=== PATIENT | female | born 1990 | race Caucasian/White ===

== ENCOUNTER 2016-03-18 10:57 | Emergency (ER) | payer OTHER ==
[~2016-03-18 10:57] MED LIST: ACET50TA PO; CEPH25SS PO; LOVE0.4I2 SC; LOVE1INJ2 SC; MOTR200T44 PO; PRENTAB74 PO
--- NOTE | 2016-03-18 13:54 | EDDOCDS ---
Physician Documentation [facility] Name: Gilma Uribe Age: 25 yrs Sex: Female : 1990 Arrival Date: 03/18/2016 Time: 10:57 Bed TR8 Private MD: Unknown Pcp Disposition: 03/18/16 13:43 Discharged to Home/Self Care. Impression: Paresthesia of skin - RIGHT hand, suspect CTS. - Condition is Stable. - Discharge Instructions: Paresthesia, [id number]. - Medication Reconciliation, Local Pharmacy Hours, Work Release Form - 1 day form. - Follow up: [facility]; When: Call to arrange an appointment; Reason: Further diagnostic work-up, Recheck today's complaints, Continuance of care. - Problem is new. - Symptoms are unchanged. Historical: - Allergies: no known allergies; - Home Meds: 1. none - PMHx: none; - PSHx: Tubal ligation; Bunionectomy; - Social history: Smoking status: Patient uses tobacco products, light tobacco smoker. No barriers to communication noted, The patient speaks fluent Indian, Speaks appropriately for age. - Family history: Not pertinent. - : The pt / caregiver states he / she is not on anticoagulants. Home medication list is obtained from the patient. - Exposure Risk Screening:: None identified. 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 9 in. (175.26 cm); Pain 0/10; 13:46 BP 110 / 56; Pulse 68; Resp 16; Temp 97.2; Pulse Ox 100% ; Pain 0/10; cmb 11:00 Body Mass Index 16.54 (50.80 kg, 175.26 cm) bnb Signatures: Erwin Philippe RN RN mlb1 Simon Cabrera PA PA btw Conner, Teresa RN RN ttb MTDD
--- NOTE | 2016-03-18 13:54 | EDDOCDS ---
Nurse's Notes [facility] Name: Gilma Uribe Age: 25 yrs Sex: Female : 1990 Arrival Date: 03/18/2016 Time: 10:57 Bed TR8 Private MD: Unknown Pcp Diagnosis: Paresthesia of skin-RIGHT hand, suspect CTS Presentation: 03/18 11:05 Presenting complaint: Patient states: Awoke with right hand numbness, states "now it's mlb1 tingling". Adult Sepsis Screening: The patient does not have new or worsening altered mentation. Patient's respiratory rate is less than 22. Systolic blood pressure is greater than 100. Patient has a qSOFA score of 0- Negative Sepsis Screen. Suicide/Homicide risk assessment- the patient denies having any suicidal and/or homicidal ideations and does not present with any other emotional, behavioral or mental health complaints. Status: Patient is not a product manager financial services or dependent. Transition of care: patient was not received from another setting of care. 11:05 Acuity: CHARLA Level 4 mlb1 11:05 Method Of Arrival: Walkin/Carried/Asstd mlb1 Triage Assessment: 11:07 General: Appears in no apparent distress, Behavior is appropriate for age, cooperative. mlb1 Pain: Denies pain. Pt Declines HIV testing. Neurological: Reports tingling in right hand. Musculoskeletal: Circulation, motion, and sensation intact Capillary refill < 3 seconds is brisk in right fingers. 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 none - PMHx: none; - PSHx: Tubal ligation; Bunionectomy; - Social history: Smoking status: Patient uses tobacco products, light tobacco smoker. No barriers to communication noted, The patient speaks fluent Bengali, Speaks appropriately for age. - Family history: Not pertinent. - : The pt / caregiver states he / she is not on anticoagulants. Home medication list is obtained from the patient. - Exposure Risk Screening:: None identified. Screenin:51 Screening information is obtained from the patient. Fall risk: No risks identified. ttb Assistance ADL's: requires no assistance with activities of daily living. Abuse/DV Screen: The patient / caregiver reports he/she is: not in a situation that causes fear, pain or injury. Nutritional screening: No deficits noted. Advance Directives: Currently, there is no health care proxy. home support is adequate. Assessment: 13:51 General: Appears in no apparent distress, well nourished, well groomed, Behavior is ttb appropriate for age, cooperative, pleasant. Pain: Location: right hand. Neurological: Level of Consciousness is awake, alert. Cardiovascular: Chest pain is denied. Respiratory: No deficits noted. Airway is patent Denies cough, shortness of breath. GI: Denies nausea, vomiting, pain. Derm: No deficits noted. Musculoskeletal: Circulation, motion, and sensation intact Range of motion intact in all extremities. Injury Description: No known injury. Vital Signs: 11:00 BP 123 / 66 RA Sitting (auto/reg); Pulse 86; Resp 20; Temp 96.7; Pulse Ox 100% on R/A; bnb Weight 50.8 kg; Height 5 ft. 9 in. (175.26 cm); Pain 0/10; 13:46 BP 110 / 56; Pulse 68; Resp 16; Temp 97.2; Pulse Ox 100% ; Pain 0/10; cmb 11:00 Body Mass Index 16.54 (50.80 kg, 175.26 cm) bnb ED Course: 10:59 Patient visited by Belinda Yee PCA. bnb 10:59 Patient moved to Waiting bnb 11:00 Unknown Pcp is Private Physician. bnb 11:01 Patient visited by Belinda Yee PCA. bnb 11:02 Patient moved to Pre RCE bnb 11:04 Patient visited by Erwin Philippe, RN. mlb1 11:06 Triage Initiated mlb1 11:07 Patient visited by Erwin Philippe, RN. mlb1 12:40 Patient moved to Triage 3 cmb 13:25 Simon Cabrera PA is PHCP. btw 13:25 Bethany Holloway MD is Attending Physician. btw 13:33 Patient visited by Simon Cabrera PA. btw 13:42 [facility] is Referral Physician. btw 13:46 Patient visited by Patsy Chen. cmb 13:51 Patient moved to TR8 [facility] 13:51 The patient / caregiver is instructed regarding the plan of care and ED course. Patient ttb has correct armband on for positive identification. 13:51 No IV's were initiated during this patient's visit. No procedures done that require ttb assistance. Order Results: There are currently no results for this order. Outcome: 13:43 Discharge ordered by Provider. btw 13:51 Discharge Assessment: Patient awake, alert and oriented x 3. No cognitive and/or ttb functional deficits noted. Patient verbalized understanding of disposition instructions. Patient awake and alert. patient administered narcotics - no. The following High Risk Discharge criteria are identified: None. Discharged to home ambulatory. Condition: good Condition: stable Condition: improved. Discharge instructions given to patient, Instructed on discharge instructions, follow up and referral plans. medication usage, ice Demonstrated understanding of instructions, medications, Pt was receptive of discharge instructions/ teaching. Work note provided to patient. No special radiology studies were completed. Property :Personal belongings accompany Pt. 13:53 Patient left the ED. ttb Signatures: Suzanne Farmer RN Erwin Martinez mcp RN RN mlb1 Simon Cabrera PA PA btPatsy Parker Teresa, RN RN ttb Belinda Yee, SUSAN WAREHOUSE SELECTOR bncarmen JOSELYN
--- NOTE | 2016-03-20 14:54 | EDDOCDS ---
Nurse's Notes [facility] Name: Gilma Uribe Age: 25 yrs Sex: Female : 1990 Arrival Date: 03/18/2016 Time: 10:57 Bed TR8 Private MD: Unknown Pcp Diagnosis: Paresthesia of skin-RIGHT hand, suspect CTS Presentation: 03/18 11:05 Presenting complaint: Patient states: Awoke with right hand numbness, states "now it's mlb1 tingling". Adult Sepsis Screening: The patient does not have new or worsening altered mentation. Patient's respiratory rate is less than 22. Systolic blood pressure is greater than 100. Patient has a qSOFA score of 0- Negative Sepsis Screen. Suicide/Homicide risk assessment- the patient denies having any suicidal and/or homicidal ideations and does not present with any other emotional, behavioral or mental health complaints. Status: Patient is not a surgical services assistant or dependent. Transition of care: patient was not received from another setting of care. 11:05 Acuity: CHARLA Level 4 mlb1 11:05 Method Of Arrival: Walkin/Carried/Asstd mlb1 Triage Assessment: 11:07 General: Appears in no apparent distress, Behavior is appropriate for age, cooperative. mlb1 Pain: Denies pain. Pt Declines HIV testing. Neurological: Reports tingling in right hand. Musculoskeletal: Circulation, motion, and sensation intact Capillary refill < 3 seconds is brisk in right fingers. 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 none - PMHx: none; - PSHx: Tubal ligation; Bunionectomy; - Social history: Smoking status: Patient uses tobacco products, light tobacco smoker. No barriers to communication noted, The patient speaks fluent Maltese, Speaks appropriately for age. - Family history: Not pertinent. - : The pt / caregiver states he / she is not on anticoagulants. Home medication list is obtained from the patient. - Exposure Risk Screening:: None identified. Screenin:51 Screening information is obtained from the patient. Fall risk: No risks identified. ttb Assistance ADL's: requires no assistance with activities of daily living. Abuse/DV Screen: The patient / caregiver reports he/she is: not in a situation that causes fear, pain or injury. Nutritional screening: No deficits noted. Advance Directives: Currently, there is no health care proxy. home support is adequate. Assessment: 13:51 General: Appears in no apparent distress, well nourished, well groomed, Behavior is ttb appropriate for age, cooperative, pleasant. Pain: Location: right hand. Neurological: Level of Consciousness is awake, alert. Cardiovascular: Chest pain is denied. Respiratory: No deficits noted. Airway is patent Denies cough, shortness of breath. GI: Denies nausea, vomiting, pain. Derm: No deficits noted. Musculoskeletal: Circulation, motion, and sensation intact Range of motion intact in all extremities. Injury Description: No known injury. Vital Signs: 11:00 BP 123 / 66 RA Sitting (auto/reg); Pulse 86; Resp 20; Temp 96.7; Pulse Ox 100% on R/A; bnb Weight 50.8 kg; Height 5 ft. 9 in. (175.26 cm); Pain 0/10; 13:46 BP 110 / 56; Pulse 68; Resp 16; Temp 97.2; Pulse Ox 100% ; Pain 0/10; cmb 11:00 Body Mass Index 16.54 (50.80 kg, 175.26 cm) bnb ED Course: 10:59 Patient visited by Belinda Yee PCA. bnb 10:59 Patient moved to Waiting bnb 11:00 Unknown Pcp is Private Physician. bnb 11:01 Patient visited by Belinda Yee PCA. bnb 11:02 Patient moved to Pre RCE bnb 11:04 Patient visited by Erwin Philippe, RN. mlb1 11:06 Triage Initiated mlb1 11:07 Patient visited by Erwin Philippe, RN. mlb1 12:40 Patient moved to Triage 3 cmb 13:25 Simon Cabrera PA is PHCP. btw 13:25 Bethany Holloway MD is Attending Physician. btw 13:33 Patient visited by Simon Cabrera PA. btw 13:42 [facility] is Referral Physician. btw 13:46 Patient visited by Patsy Chen. cmb 13:51 Patient moved to TR8 [facility] 13:51 The patient / caregiver is instructed regarding the plan of care and ED course. Patient ttb has correct armband on for positive identification. 13:51 No IV's were initiated during this patient's visit. No procedures done that require ttb assistance. 14:05 Patient name changed from Gilma\\S\\Beth\\S\\Tamblin\\S\\ to Gilma\\S\\N\\S\\Tamblin. EDMS 14:06 [facility] Payment Agreement was scanned into [employer] and attached to record. 15:40 T-Sheet-- Draft Copy was scanned into [employer] and attached to record. gb Order Results: There are currently no results for this order. Outcome: 13:43 Discharge ordered by Provider. btw 13:51 Discharge Assessment: Patient awake, alert and oriented x 3. No cognitive and/or ttb functional deficits noted. Patient verbalized understanding of disposition instructions. Patient awake and alert. patient administered narcotics - no. The following High Risk Discharge criteria are identified: None. Discharged to home ambulatory. Condition: good Condition: stable Condition: improved. Discharge instructions given to patient, Instructed on discharge instructions, follow up and referral plans. medication usage, ice Demonstrated understanding of instructions, medications, Pt was receptive of discharge instructions/ teaching. Work note provided to patient. No special radiology studies were completed. Property :Personal belongings accompany Pt. 13:53 Patient left the ED. ttb Signatures: Dispatcher [facility] EDTN Suzanne Farmer, RN RN Jayne Flowers, Reg Reg gb Deborah Elder, Reg Reg lg Erwin Philippe RN RN mlb1 Simon Cabrera PA PA btw Patsy Chen cmNaya Clay RN RN ttb Belinda Yee, SUSAN LEAN MANUFACTURING COORDINATOR bnb Chart Complete MTDD
--- NOTE | 2016-03-20 14:54 | EDDOCDS ---
Physician Documentation [facility] Name: Gilma Uribe Age: 25 yrs Sex: Female : 1990 Arrival Date: 03/18/2016 Time: 10:57 Bed TR8 Private MD: Unknown Pcp Disposition: 03/18/16 13:43 Discharged to Home/Self Care. Impression: Paresthesia of skin - RIGHT hand, suspect CTS. - Condition is Stable. - Discharge Instructions: Paresthesia, [id number]. - Medication Reconciliation, Local Pharmacy Hours, Work Release Form - 1 day form. - Follow up: [facility]; When: Call to arrange an appointment; Reason: Further diagnostic work-up, Recheck today's complaints, Continuance of care. - Problem is new. - Symptoms are unchanged. Historical: - Allergies: no known allergies; - Home Meds: 1. none - PMHx: none; - PSHx: Tubal ligation; Bunionectomy; - Social history: Smoking status: Patient uses tobacco products, light tobacco smoker. No barriers to communication noted, The patient speaks fluent Irish, Speaks appropriately for age. - Family history: Not pertinent. - : The pt / caregiver states he / she is not on anticoagulants. Home medication list is obtained from the patient. - Exposure Risk Screening:: None identified. 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 9 in. (175.26 cm); Pain 0/10; 13:46 BP 110 / 56; Pulse 68; Resp 16; Temp 97.2; Pulse Ox 100% ; Pain 0/10; cmb 11:00 Body Mass Index 16.54 (50.80 kg, 175.26 cm) bnb MDM: 14:06 [facility] [place] Agreement was scanned into [employer] and attached to record. lg 15:40 T-Sheet-- Draft Copy was scanned into [employer] and attached to record. gb Signatures: Jayne Hoffman, Reg Reg gb Deborah Elder, Reg Reg lg Erwin Philippe RN RN mlb1 Simon Cabrera PA PA ryanw Naya Mejia RN RN ttb The chart was reviewed and I authenticate all verbal orders and agree with the evaluation and treatment provided.Attachments: 14:06 [facility] Payment Agreement lg 15:40 T-Sheet-- Draft Copy gb Chart Complete MTDD
--- NOTE | 2016-03-20 14:54 | EDDOCDS ---
Physician Documentation [facility] Name: Gilma Uribe Age: 25 yrs Sex: Female : 1990 Arrival Date: 03/18/2016 Time: 10:57 Bed TR8 Private MD: Unknown Pcp Disposition: 03/18/16 13:43 Discharged to Home/Self Care. Impression: Paresthesia of skin - RIGHT hand, suspect CTS. - Condition is Stable. - Discharge Instructions: Paresthesia, [id number]. - Medication Reconciliation, Local Pharmacy Hours, Work Release Form - 1 day form. - Follow up: [facility]; When: Call to arrange an appointment; Reason: Further diagnostic work-up, Recheck today's complaints, Continuance of care. - Problem is new. - Symptoms are unchanged. Historical: - Allergies: no known allergies; - Home Meds: 1. none - PMHx: none; - PSHx: Tubal ligation; Bunionectomy; - Social history: Smoking status: Patient uses tobacco products, light tobacco smoker. No barriers to communication noted, The patient speaks fluent Paraguayan, Speaks appropriately for age. - Family history: Not pertinent. - : The pt / caregiver states he / she is not on anticoagulants. Home medication list is obtained from the patient. - Exposure Risk Screening:: None identified. 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 9 in. (175.26 cm); Pain 0/10; 13:46 BP 110 / 56; Pulse 68; Resp 16; Temp 97.2; Pulse Ox 100% ; Pain 0/10; cmb 11:00 Body Mass Index 16.54 (50.80 kg, 175.26 cm) bnb MDM: 14:06 [facility] [place] Payment Agreement was scanned into [employer] and attached to record. lg 15:40 T-Sheet-- Draft Copy was scanned into [employer] and attached to record. gb Signatures: Jayne Hoffman, Reg Reg gb Deborah Elder, Reg Reg lg Erwin Philippe RN RN mlb1 Simon Cabrera PA PA yranw Naya Mejia RN RN ttb The chart was reviewed and I authenticate all verbal orders and agree with the evaluation and treatment provided.Attachments: 14:06 [facility] Payment Agreement lg 15:40 T-Sheet-- Draft Copy gb Chart Complete MTDD
== END 2016-03-18 13:53 | disposition home or self-care (01) ==
LOC: M ED 10:57
DX: R20.2 Paresthesia of skin (principal); F17.210 Nicotine dependence, cigarettes, uncomplicated

== ENCOUNTER 2016-03-21 08:53 | Emergency (ER) | payer OTHER ==
[2016-03-21] MEDS ORDERED: KETOROLAC 30 MG/ML VIAL (J1885) As Ordered ONE (09:21)
--- NOTE | 2016-03-21 10:48 | EDDOCDS ---
Physician Documentation [facility] Name: Gilma Gonzalez Age: 25 yrs Sex: Female : 1990 Arrival Date: 03/21/2016 Time: 08:53 Bed PR Private MD: Disposition: 03/21/16 10:39 Discharged to Home/Self Care. Impression: Strain of muscle and tendon of back wall of thorax - mid t-spine. - Condition is Stable. - Discharge Instructions: Muscle Strain. - Prescriptions for Naprosyn 250 mg Oral Tablet - take 1 tablet by ORAL route every 12 hours As needed take with food; 30 tablet. Cyclobenzaprine 10 mg Oral Tablet - take 1 tablet by ORAL route at bedtime As needed; 15 tablet. - Medication Reconciliation, Work Release Form - 2 day, Local Pharmacy Hours form. - Follow up: Emergency Department; When: As needed; Reason: Worsening of conditions. [facility]; When: Call to arrange an appointment; Reason: Wound/Symptom Recheck, Recheck today's complaints, Continuance of care, To establish care. - Problem is new. - Symptoms have improved. Historical: - Allergies: no known allergies; - Home Meds: 1. none - PMHx: none; - PSHx: Tubal ligation; Bunionectomy; - Social history: Smoking status: Patient uses tobacco products, heavy tobacco smoker. No barriers to communication noted, The patient speaks fluent Malagasy, Speaks appropriately for age. - : The pt / caregiver states he / she is not on anticoagulants. Home medication list is obtained from the patient. - Exposure Risk Screening:: None identified. 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 9 in. (175.26 cm); Pain 8/10; 10:41 BP 110 / 66; Pulse 65; Resp 18; Temp 98.2(O); Pulse Ox 97% on R/A; Pain 4/10; ct3 09:10 Body Mass Index 16.54 (50.80 kg, 175.26 cm) hs1 MDM: 09:19 ketorolac 30 mg IM once ordered. dt4 09:19 Spine, Thoracic 3 Views Ordered. EDMS 09:35 Financial registration complete. lg 09:52 [facility] Payment Agreement was scanned into [employer] and attached to record. lg Administered Medications: 09:25 Drug: ketorolac 30 mg [ketorolac 30 mg/mL (1 mL) injection solution (1 mL)] Route: IM; hs1 Site: left gluteus; Signatures: Dispatcher [employer] EDMS Deborah Elder, Reg Reg lg Zenaida Walker, RN RN jjViktoriya Vera RN RN hs1 Britni Chakraborty PA-C PA-C dt4 The chart was reviewed and I authenticate all verbal orders and agree with the evaluation and treatment provided.Attachments: 09:52 [facility] Payment Agreement lg MTDD
--- NOTE | 2016-03-21 10:49 | EDDOCDS ---
Nurse's Notes [facility] Name: Gilma Gonzalez Age: 25 yrs Sex: Female : 1990 Arrival Date: 03/21/2016 Time: 08:53 Bed PR Private MD: Diagnosis: Strain of muscle and tendon of back wall of thorax-mid t-spine Presentation: 03/21 09:07 Presenting complaint: Patient states: lifting a box yesterday and felt pop while hs1 standing up. Patient states unsure of what happened. Patient states feels pulling sensation if she leans over. Acute neurological deficits are not present. Mechanism of Injury: Lifting. Adult Sepsis Screening: The patient does not have new or worsening altered mentation. Patient's respiratory rate is less than 22. Systolic blood pressure is greater than 100. Patient has a qSOFA score of 0- Negative Sepsis Screen. Suicide/Homicide risk assessment- the patient denies having any suicidal and/or homicidal ideations and does not present with any other emotional, behavioral or mental health complaints. Status: Patient is not a cashier self service gasoline or dependent. Transition of care: patient was not received from another setting of care. 09:07 Acuity: CHARLA Level 4 hs1 09:07 Method Of Arrival: Walkin/Carried/Asstd hs1 Triage Assessment: 09:09 General: Appears uncomfortable, Behavior is appropriate for age, cooperative. Pain: hs1 Location: left subscapular area, right subscapular area and thoracic area Pain currently is 8 out of 10 on a pain scale. Pain does not radiate. Quality of pain is described as tightening. HIV screening NA for this visit Offered previously. Musculoskeletal: No deficits noted. 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 none - PMHx: none; - PSHx: Tubal ligation; Bunionectomy; - Social history: Smoking status: Patient uses tobacco products, heavy tobacco smoker. No barriers to communication noted, The patient speaks fluent Urdu, Speaks appropriately for age. - : The pt / caregiver states he / she is not on anticoagulants. Home medication list is obtained from the patient. - Exposure Risk Screening:: None identified. Screenin:45 Screening information is obtained from the patient. Fall risk: No risks identified. jjr Assistance ADL's: requires no assistance with activities of daily living. Abuse/DV Screen: The patient / caregiver reports he/she is: not in a situation that causes fear, pain or injury. Nutritional screening: No deficits noted. Advance Directives: There is no active DNR order. home support is adequate. Assessment: 10:18 General: Appears in no apparent distress, Behavior is appropriate for age, cooperative, hs1 patient states feeling better. Pain decreasing. Aware of waiting for radiologist to read results. . Vital Signs: 09:10 BP 129 / 81; Pulse 86; Resp 18; Temp 97.2(O); Pulse Ox 99% ; Weight 50.8 kg; Height 5 hs1 ft. 9 in. (175.26 cm); Pain 8/10; 10:41 BP 110 / 66; Pulse 65; Resp 18; Temp 98.2(O); Pulse Ox 97% on R/A; Pain 4/10; ct3 09:10 Body Mass Index 16.54 (50.80 kg, 175.26 cm) hs1 Vitals: 09:10 Log In Time: March 21, 2016 at 08:52. hs1 ED Course: 08:55 Patient visited by Deborah Elder Reg. lg 08:55 Patient moved to Waiting lg 09:06 Patient moved to Triage 1 hs1 09:09 Brit[facility]akrabort[facility] dt4 09:09 Bethany Holloway MD is Attending Physician. dt4 09:09 Patient visited by Britni Chakraborty PA-C. dt4 09:09 Triage Initiated hs1 09:25 Patient moved to TR1 hs1 09:52 [facility] Payment Agreement was scanned into [employer] and attached to record. lg 10:18 Patient visited by Viktoriya Quiroz RN. hs1 10:37 Patient moved to PR jjr 10:39 [facility] is Referral Physician. dt4 10:46 The patient / caregiver is instructed regarding the plan of care and ED course. jjr 10:46 No IV's were initiated during this patient's visit. No procedures done that require jjr assistance. Administered Medications: 09:25 Drug: ketorolac 30 mg [ketorolac 30 mg/mL (1 mL) injection solution (1 mL)] Route: IM; hs1 Site: left gluteus; Order Results: There are currently no results for this order. Outcome: 10:39 Discharge ordered by Provider. dt4 10:46 Discharge Assessment: patient administered narcotics - no. The following High Risk jjr Discharge criteria are identified: None. Discharged to home ambulatory. Condition: stable. Discharge instructions given to patient, Instructed on discharge instructions, follow up and referral plans. medication usage, Demonstrated understanding of instructions, medications, Prescriptions given X 2, Work note provided to patient. No special radiology studies were completed. Property sent home with patient. 10:46 Patient left the ED. jjr Signatures: Deborah Elder, Bib Reg Zenaida Newby RN RN jjr Viktoriya Quiroz RN RN hs1 Chela Sy, VEST FINISHER VEST FINISHER ct3 Britni Chakraborty PA-C PA-C dt4 MTDD
[2016-03-21] MEDS ORDERED: NORCO, ANEXSIA 5/325MG TABLET (HYDROcodone/ACETAMINOPHEN) As Ordered ONE (14:04)
--- NOTE | 2016-03-23 08:30 | REP ---
Thoracic spine three views: Vertebral body heights, interspacing alignment are normal. No compression deformities or listhesis. There is mild scoliosis convex left, possibly positional. Mineralization and pedicles are unremarkable. Impression: Mild scoliosis. No compression deformity or listhesis. Signed by Rubén Otoole MD 03/21/2016 10:13 A
--- NOTE | 2016-03-23 11:47 | EDDOCDS ---
Physician Documentation [facility] Name: Gilma Gonzalez Age: 25 yrs Sex: Female : 1990 Arrival Date: 03/21/2016 Time: 08:53 Bed PR Private MD: Disposition: 03/21/16 10:39 Discharged to Home/Self Care. Impression: Strain of muscle and tendon of back wall of thorax - mid t-spine. - Condition is Stable. - Discharge Instructions: Muscle Strain. - Prescriptions for Naprosyn 250 mg Oral Tablet - take 1 tablet by ORAL route every 12 hours As needed take with food; 30 tablet. Cyclobenzaprine 10 mg Oral Tablet - take 1 tablet by ORAL route at bedtime As needed; 15 tablet. - Medication Reconciliation, Work Release Form - 2 day, Local Pharmacy Hours form. - Follow up: Emergency Department; When: As needed; Reason: Worsening of conditions. Follow [facility]: [facility]; When: Call to arrange an appointment; Reason: Wound/Symptom Recheck, Recheck today's complaints, Continuance of care, To establish care. - Problem is new. - Symptoms have improved. Historical: - Allergies: no known allergies; - Home Meds: 1. none - PMHx: none; - PSHx: Tubal ligation; Bunionectomy; - Social history: Smoking status: Patient uses tobacco products, heavy tobacco smoker. No barriers to communication noted, The patient speaks fluent Anguillan, Speaks appropriately for age. - : The pt / caregiver states he / she is not on anticoagulants. Home medication list is obtained from the patient. - Exposure Risk Screening:: None identified. 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 9 in. (175.26 cm); Pain 8/10; 10:41 BP 110 / 66; Pulse 65; Resp 18; Temp 98.2(O); Pulse Ox 97% on R/A; Pain 4/10; ct3 09:10 Body Mass Index 16.54 (50.80 kg, 175.26 cm) hs1 MDM: 09:19 ketorolac 30 mg IM once ordered. dt4 09:19 Spine, Thoracic 3 Views Ordered. EDMS 09:35 Financial registration complete. lg 09:52 [facility] Payment Agreement was scanned into [employer] and attached to record. lg 03/22 17:46 T-Sheet-- Draft Copy was scanned into [employer] and attached to record. kf3 Administered Medications: 03/21 09:25 Drug: ketorolac 30 mg [ketorolac 30 mg/mL (1 mL) injection solution (1 mL)] Route: IM; hs1 Site: left gluteus; Signatures: Dispatcher [employer] EDMS Debroah Elder, Reg Reg lg Martin Lozano, Reg Reg kf3 Zenaida Walker RN RN Viktoriya Matrell RN RN hs1 Britni Chakraborty, JOAN FRANCO dt4 The chart was reviewed and I authenticate all verbal orders and agree with the evaluation and treatment provided.Attachments: 09:52 [facility] Payment Agreement lg 03/22 17:46 T-Sheet-- Draft Copy kf3 Chart Complete MTDD
--- NOTE | 2016-03-23 11:47 | EDDOCDS ---
Nurse's Notes [facility] Name: Gilma Gonzalez Age: 25 yrs Sex: Female : 1990 Arrival Date: 03/21/2016 Time: 08:53 Bed PR Private MD: Diagnosis: Strain of muscle and tendon of back wall of thorax-mid t-spine Presentation: 03/21 09:07 Presenting complaint: Patient states: lifting a box yesterday and felt pop while hs1 standing up. Patient states unsure of what happened. Patient states feels pulling sensation if she leans over. Acute neurological deficits are not present. Mechanism of Injury: Lifting. Adult Sepsis Screening: The patient does not have new or worsening altered mentation. Patient's respiratory rate is less than 22. Systolic blood pressure is greater than 100. Patient has a qSOFA score of 0- Negative Sepsis Screen. Suicide/Homicide risk assessment- the patient denies having any suicidal and/or homicidal ideations and does not present with any other emotional, behavioral or mental health complaints. 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 Transition of care: patient was not received from another setting of care. 09:07 Acuity: CHARLA Level 4 hs1 09:07 Method Of Arrival: Walkin/Carried/Asstd hs1 Triage Assessment: 09:09 General: Appears uncomfortable, Behavior is appropriate for age, cooperative. Pain: hs1 Location: left subscapular area, right subscapular area and thoracic area Pain currently is 8 out of 10 on a pain scale. Pain does not radiate. Quality of pain is described as tightening. HIV screening NA for this visit Offered previously. Musculoskeletal: No deficits noted. 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 none - PMHx: none; - PSHx: Tubal ligation; Bunionectomy; - Social history: Smoking status: Patient uses tobacco products, heavy tobacco smoker. No barriers to communication noted, The patient speaks fluent Thai, Speaks appropriately for age. - : The pt / caregiver states he / she is not on anticoagulants. Home medication list is obtained from the patient. - Exposure Risk Screening:: None identified. Screenin:45 Screening information is obtained from the patient. Fall risk: No risks identified. jjr Assistance ADL's: requires no assistance with activities of daily living. Abuse/DV Screen: The patient / caregiver reports he/she is: not in a situation that causes fear, pain or injury. Nutritional screening: No deficits noted. Advance Directives: There is no active DNR order. home support is adequate. Assessment: 10:18 General: Appears in no apparent distress, Behavior is appropriate for age, cooperative, hs1 patient states feeling better. Pain decreasing. Aware of waiting for radiologist to read results. . Vital Signs: 09:10 BP 129 / 81; Pulse 86; Resp 18; Temp 97.2(O); Pulse Ox 99% ; Weight 50.8 kg; Height 5 hs1 ft. 9 in. (175.26 cm); Pain 8/10; 10:41 BP 110 / 66; Pulse 65; Resp 18; Temp 98.2(O); Pulse Ox 97% on R/A; Pain 4/10; ct3 09:10 Body Mass Index 16.54 (50.80 kg, 175.26 cm) hs1 Vitals: 09:10 Log In Time: March 21, 2016 at 08:52. hs1 ED Course: 08:55 Patient visited by Deborah Elder Reg. lg 08:55 Patient moved to Waiting lg 09:06 Patient moved to Triage 1 hs1 09:09 Brit[facility]akrabort[facility] dt4 09:09 Bethany Holloway MD is Attending Physician. dt4 09:09 Patient visited by Britni Chakraborty PA-C. dt4 09:09 Triage Initiated hs1 09:25 Patient moved to TR1 hs1 09:52 [facility] Payment Agreement was scanned into [employer] and attached to record. lg 10:18 Patient visited by Viktoriya Quiroz RN. hs1 10:37 Patient moved to PR jjr 10:39 [facility] is Referral Physician. dt4 10:46 The patient / caregiver is instructed regarding the plan of care and ED course. jjr 10:46 No IV's were initiated during this patient's visit. No procedures done that require jjr assistance. 03/22 17:46 T-Sheet-- Draft Copy was scanned into [employer] and attached to record. kf3 03/23 08:50 Spine, Thoracic 3 Views Returned. EDMS Administered Medications: 03/21 09:25 Drug: ketorolac 30 mg [ketorolac 30 mg/mL (1 mL) injection solution (1 mL)] Route: IM; hs1 Site: left gluteus; Order Results: Radiology Order: Spine, Thoracic 3 Views Test: Spine, Thoracic 3 Views REASON FOR EXAMINATION: mid t-spine pain/injury; Thoracic spine three views:; ; Vertebral body heights, interspacing alignment are normal. No compression; deformities or listhesis. There is mild scoliosis convex left, possibly; positional.; ; Mineralization and pedicles are unremarkable.; ; Impression:; ; Mild scoliosis. No compression deformity or listhesis.; ; ; Signed by; Rubén Otoole MD 03/21/2016 10:13 A; Outcome: 10:39 Discharge ordered by Provider. dt4 10:46 Discharge Assessment: patient administered narcotics - no. The following High Risk jjr Discharge criteria are identified: None. Discharged to home ambulatory. Condition: stable. Discharge instructions given to patient, Instructed on discharge instructions, follow up and referral plans. medication usage, Demonstrated understanding of instructions, medications, Prescriptions given X 2, Work note provided to patient. No special radiology studies were completed. Property sent home with patient. 10:46 Patient left the ED. jjr Signatures: Dispatcher [employer] EDSD Deborah Elder, Reg Reg lg Fiddexterr, Martin, Reg Reg kf3 Zenaida Walker RN RN jjr Sherrill, Hannah, RN RN hs1 Chela Sy, DIRECTOR COMMUNITY CENTER DIRECTOR COMMUNITY CENTER ct3 Britni Chakraborty PA-C PA-C dt4 Chart Complete MTDD
--- NOTE | 2016-03-23 11:47 | EDDOCDS ---
Physician Documentation [facility] Name: Gilma Gonzalez Age: 25 yrs Sex: Female : 1990 Arrival Date: 03/21/2016 Time: 08:53 Bed PR Private MD: Disposition: 03/21/16 10:39 Discharged to Home/Self Care. Impression: Strain of muscle and tendon of back wall of thorax - mid t-spine. - Condition is Stable. - Discharge Instructions: Muscle Strain. - Prescriptions for Naprosyn 250 mg Oral Tablet - take 1 tablet by ORAL route every 12 hours As needed take with food; 30 tablet. Cyclobenzaprine 10 mg Oral Tablet - take 1 tablet by ORAL route at bedtime As needed; 15 tablet. - Medication Reconciliation, Work Release Form - 2 day, Local Pharmacy Hours form. - Follow up: Emergency Department; When: As needed; Reason: Worsening of conditions. Follow [facility]: [facility]; When: Call to arrange an appointment; Reason: Wound/Symptom Recheck, Recheck today's complaints, Continuance of care, To establish care. - Problem is new. - Symptoms have improved. Historical: - Allergies: no known allergies; - Home Meds: 1. none - PMHx: none; - PSHx: Tubal ligation; Bunionectomy; - Social history: Smoking status: Patient uses tobacco products, heavy tobacco smoker. No barriers to communication noted, The patient speaks fluent Sierra Leonean, Speaks appropriately for age. - : The pt / caregiver states he / she is not on anticoagulants. Home medication list is obtained from the patient. - Exposure Risk Screening:: None identified. 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 9 in. (175.26 cm); Pain 8/10; 10:41 BP 110 / 66; Pulse 65; Resp 18; Temp 98.2(O); Pulse Ox 97% on R/A; Pain 4/10; ct3 09:10 Body Mass Index 16.54 (50.80 kg, 175.26 cm) hs1 MDM: 09:19 ketorolac 30 mg IM once ordered. dt4 09:19 Spine, Thoracic 3 Views Ordered. EDMS 09:35 Financial registration complete. lg 09:52 [facility] Payment Agreement was scanned into [employer] and attached to record. lg 03/22 17:46 T-Sheet-- Draft Copy was scanned into [employer] and attached to record. kf3 Administered Medications: 03/21 09:25 Drug: ketorolac 30 mg [ketorolac 30 mg/mL (1 mL) injection solution (1 mL)] Route: IM; hs1 Site: left gluteus; Signatures: Dispatcher [employer] EDMS Deborah Elder, Reg Reg lg Martin Lozano, Reg Reg kf3 Zenaida Walker RN RN Viktoriya Martell RN RN hs1 Britni Chakraborty, JOAN FRANCO dt4 The chart was reviewed and I authenticate all verbal orders and agree with the evaluation and treatment provided.Attachments: 09:52 [facility] Payment Agreement lg 03/22 17:46 T-Sheet-- Draft Copy kf3 Chart Complete MTDD
== END 2016-03-21 10:46 | disposition home or self-care (01) ==
LOC: M ED 08:53
DX: S29.012A Strain of muscle and tendon of back wall of thorax, initial encounter (principal); X50.9XXA Other and unspecified overexertion or strenuous movements or postures, initial encounter; Y92.019 Unspecified place in single-family (private) house as the place of occurrence of the external cause; Y93.89 Activity, other specified; Y99.8 Other external cause status; F17.210 Nicotine dependence, cigarettes, uncomplicated
CPT/HCPCS: 72072; 96372; 99283; J1885

== ENCOUNTER 2016-03-21 13:29 | Emergency (ER) | payer OTHER ==
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
== END 2016-03-21 14:11 | disposition home or self-care (01) ==
LOC: M ED 13:29
DX: S40.012A Contusion of left shoulder, initial encounter (principal); S80.01XA Contusion of right knee, initial encounter; V49.40XA Driver injured in collision with unspecified motor vehicles in traffic accident, initial encounter; Y92.410 Unspecified street and highway as the place of occurrence of the external cause; Y93.89 Activity, other specified; Y99.8 Other external cause status; F17.210 Nicotine dependence, cigarettes, uncomplicated

== ENCOUNTER → 2016-07-12 | Outpatient (REF) | payer OTHER | LOC: M LAB REF 12:13 | PROVIDERS: ATTEND Physician Assistant Medical | DX: J02.9 Acute pharyngitis, unspecified (principal) ==

== ENCOUNTER → 2016-08-22 | Outpatient (REF) | payer MEDICAID, OTHER | LOC: M LAB REF 18:11 | PROVIDERS: ATTEND Physician Assistant Medical | DX: J02.9 Acute pharyngitis, unspecified (principal) ==

== ENCOUNTER 2017-04-09 14:01 | Emergency (ER) | payer OTHER | END 2017-04-09 17:55 | disposition home or self-care (01) | LOC: M ED 14:01 | DX: S76.911A Strain of unspecified muscles, fascia and tendons at thigh level, right thigh, initial encounter (principal); X58.XXXA Exposure to other specified factors, initial encounter; Y92.89 Other specified places as the place of occurrence of the external cause; Z86.718 Personal history of other venous thrombosis and embolism; F17.210 Nicotine dependence, cigarettes, uncomplicated | CPT/HCPCS: 93971 ==

== ENCOUNTER → 2017-09-27 | Outpatient (REF) | payer OTHER ==
[2017-09-27 19:55] LABS: BASO % 0.4 % (0.0-1.0); EOS # 0.1 10^3/uL (0.0-0.50); HEMATOCRIT 46.6 % (36.0-47.0); HEMOGLOBIN 15.7 g/dl (12.0-15.5); IMMATURE GRANULOCYTE % 0.3 % (0-3.0); LYMPH # 2.1 10^3/uL (1.5-6.5); LYMPH % 26.5 % (24.0-44.0); MEAN CORPUSCULAR HEMOGLOBIN 31.3 pg (27.0-33.0); MEAN CORPUSCULAR HGB CONC 33.7 g/dl (32.0-36.5); MONO # 0.4 10^3/uL (0.0-0.8); MONO % 5.3 % (0.0-5.0); NEUTROPHILS # 5.3 10^3/uL (1.8-7.7); NEUTROPHILS % 66.5 % (36.0-66.0); PLATELET COUNT, AUTOMATED 128 10^3/uL (150-450); RED BLOOD COUNT 5.01 10^6/uL (4.00-5.40); RED CELL DISTRIBUTION WIDTH 12.3 % (11.5-14.5)
[2017-09-27 20:10] LABS: ALBUMIN 4.2 GM/DL (3.2-5.2); ALBUMIN/GLOBULIN RATIO 1.17 (1.00-1.93); ALKALINE PHOSPHATASE 54 U/L (45-117); ALT/SGPT 19 U/L (12-78); ANION GAP 6 MEQ/L (8-16); AST/SGOT 17 U/L (7-37); BILIRUBIN,TOTAL 0.9 MG/DL (0.2-1.0); BLOOD UREA NITROGEN 12 MG/DL (7-18); CALCIUM LEVEL 8.7 MG/DL (8.5-10.1); CARBON DIOXIDE LEVEL 27 MEQ/L (21-32); CHLORIDE LEVEL 108 MEQ/L (98-107); CREATININE FOR GFR 0.97 MG/DL (0.55-1.30); FREE T4 1.04 NG/DL (0.76-1.46); GLOMERULAR FILTRATION RATE > 60.0 (>60); GLUCOSE, FASTING 80 MG/DL (70-100); POTASSIUM SERUM 4.3 MEQ/L (3.5-5.1); SODIUM LEVEL 141 MEQ/L (136-145); TOTAL PROTEIN 7.8 GM/DL (6.4-8.2)
== END ==
LOC: M SFHCADAM 14:39
DX: R63.6 Underweight (principal); F17.210 Nicotine dependence, cigarettes, uncomplicated
CPT/HCPCS: 84443

== ENCOUNTER 2018-10-30 16:13 | Emergency (ER) | payer OTHER ==
[~2018-10-30] VITALS: Ht 175.3 cm; Wt 54.5 kg
[~2018-10-30 16:13] MED LIST changes: -ACET50TA PO; +MAPA500T2 PO
[2018-10-30] MEDS ORDERED: NS 1,000 ML IV ONE (17:30)
[2018-10-30 18:08] LABS: BASO % 0.4 % (0.0-1.0); EOS # 0.2 10^3/uL (0.0-0.5); HEMATOCRIT 48.7 % (36.0-47.0); HEMOGLOBIN 16.5 g/dl (12.0-15.5); LYMPH # 2.2 10^3/uL (1.5-5.0); LYMPH % 29.9 % (24.0-44.0); MEAN CORPUSCULAR HGB CONC 33.9 g/dl (32.0-36.5); MEAN CORPUSCULAR VOLUME 94.6 fl (80.0-96.0); MONO # 0.4 10^3/uL (0.0-0.8); MONO % 5.1 % (0.0-5.0); NEUTROPHILS # 4.7 10^3/uL (1.5-8.5); NEUTROPHILS % 62.3 % (36.0-66.0); PLATELET COUNT, AUTOMATED 153 10^3/uL (150-450); RED BLOOD COUNT 5.15 10^6/uL (4.00-5.40); WHITE BLOOD COUNT 7.5 10^3/uL (4.0-10.0)
[2018-10-30] MEDS ORDERED: METOCLOPRAMIDE INJ 10MG/2ML VIAL (J2765) IV ONE (18:15)
[2018-10-30] MEDS ORDERED: diphenhydrAMINE INJ 50MG/ML VIAL (J1200) IV ONE (18:15)
[2018-10-30] MEDS ORDERED: KETOROLAC 30 MG/ML VIAL (J1885) IV ONE (18:15)
--- NOTE | 2018-10-30 18:29 | REPVR ---
EXAM: CT Head Without Contrast EXAM DATE/TIME: 10/30/2018 6:14 PM CLINICAL HISTORY: 28 years old, female; Pain; Other: Migraine; Additional info: New migraine TECHNIQUE: Imaging protocol: Computed tomography of the head without contrast. Radiation optimization: All CT scans at this facility use at least one of these dose optimization techniques: automated exposure control; mA and/or kV adjustment per patient size (includes targeted exams where dose is matched to clinical indication); or iterative reconstruction. COMPARISON: No relevant prior studies available. FINDINGS: Brain: Normal. No hemorrhage. Unremarkable white matter. No mass effect. Ventricles: Normal. No ventriculomegaly. Bones/joints: Unremarkable. No acute fracture. Sinuses: Visualized sinuses are unremarkable. No fluid levels. Mastoid air cells: Visualized mastoid air cells are well aerated. Soft tissues: Unremarkable. IMPRESSION: No acute intracranial abnormality. Electronically signed by: Jayme Calles On 10/30/2018 18:29:13 PM
[2018-10-30 19:33] VITALS: BP 112/57
== END 2018-10-30 19:39 | disposition home or self-care (01) ==
LOC: M ED 16:13
DX: G43.909 Migraine, unspecified, not intractable, without status migrainosus (principal); F17.200 Nicotine dependence, unspecified, uncomplicated; Z86.718 Personal history of other venous thrombosis and embolism
CPT/HCPCS: 70450; 80047; 84702; 85025; 96361; 96374; 96375; 99284; J1200; J1885; J2765

== ENCOUNTER 2018-11-08 17:41 | Emergency (ER) | payer OTHER ==
[~2018-11-08] VITALS: Ht 175.3 cm; Wt 55.5 kg
[2018-11-08 19:20] LABS: HEMATOCRIT 43.7 % (36.0-47.0); HEMOGLOBIN 14.8 g/dl (12.0-15.5); MEAN CORPUSCULAR HEMOGLOBIN 32.7 pg (27.0-33.0); MEAN CORPUSCULAR HGB CONC 33.9 g/dl (32.0-36.5); MEAN CORPUSCULAR VOLUME 96.5 fl (80.0-96.0); PLATELET COUNT, AUTOMATED 111 10^3/uL (150-450); RED BLOOD COUNT 4.53 10^6/uL (4.00-5.40)
--- NOTE | 2018-11-08 19:26 | ECGEPIP ---
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
[2018-11-08 19:33] LABS: ALBUMIN 3.8 GM/DL (3.2-5.2); ALT/SGPT 15 U/L (12-78); BILIRUBIN,TOTAL 0.5 MG/DL (0.2-1.0); BLOOD UREA NITROGEN 10 MG/DL (7-18); CALCIUM LEVEL 8.7 MG/DL (8.5-10.1); CARBON DIOXIDE LEVEL 28 MEQ/L (21-32); CHLORIDE LEVEL 106 MEQ/L (98-107); CK-MB VALUE MASS < 1.0 NG/ML (<3.6); CPK CREATINE PHOSPHOKINASE 69 U/L (26-192); CREATININE FOR GFR 0.85 MG/DL (0.55-1.30); GLOMERULAR FILTRATION RATE > 60.0 (>60); GLUCOSE, FASTING 75 MG/DL (70-100); MB/CK RELATIVE INDEX 1.45 (< OR =4); SODIUM LEVEL 140 MEQ/L (136-145); TOTAL PROTEIN 6.6 GM/DL (6.4-8.2); TROPONIN I < 0.02 NG/ML (< 0.10)
[2018-11-08 19:42] LABS: PARTIAL THROMBOPLASTIN TIME 28.6 SECONDS (25.0-38.4)
[2018-11-08 19:51] LABS: INR 1.17; PROTHROMBIN TIME 14.6 SECONDS (11.8-14.0)
[2018-11-08 20:49] LABS: D-DIMER QUANT < 270 ng/ml (<500)
[2018-11-08 22:51] LABS: CK-MB VALUE MASS < 1.0 NG/ML (<3.6); CPK CREATINE PHOSPHOKINASE 62 U/L (26-192); MB/CK RELATIVE INDEX 1.61 (< OR =4); TROPONIN I < 0.02 NG/ML (< 0.10)
[2018-11-08 23:08] VITALS: BP 115/63
--- NOTE | 2018-11-09 01:56 | REP ---
Clinical: Chest pain . Comparison: None . Technique: PA and lateral. Findings: The mediastinum and cardiac silhouette are normal. The lung nickerson are clear and without acute consolidation, effusion, or pneumothorax. The skeletal structures are intact and normal. Impression: 1. No acute cardiopulmonary process. Electronically Signed by Manuel Gracia MD 11/09/2018 01:47 A
== END 2018-11-08 23:13 | disposition home or self-care (01) ==
LOC: M ED 17:41
DX: R07.9 Chest pain, unspecified (principal); F41.9 Anxiety disorder, unspecified; F17.200 Nicotine dependence, unspecified, uncomplicated

== ENCOUNTER → 2018-11-21 | Outpatient (REF) | payer OTHER ==
[2018-11-21 12:57] LABS: HEMATOCRIT 44.7 % (36.0-47.0); MEAN CORPUSCULAR HEMOGLOBIN 31.8 pg (27.0-33.0); MEAN CORPUSCULAR HGB CONC 33.6 g/dl (32.0-36.5); MEAN CORPUSCULAR VOLUME 94.9 fl (80.0-96.0); PLATELET COUNT, AUTOMATED 143 10^3/uL (150-450); RED BLOOD COUNT 4.71 10^6/uL (4.00-5.40); WHITE BLOOD COUNT 7.5 10^3/uL (4.0-10.0)
[2018-11-21 13:31] LABS: ALBUMIN 4.1 GM/DL (3.2-5.2); ALT/SGPT 15 U/L (12-78); BILIRUBIN,TOTAL 0.6 MG/DL (0.2-1.0); BLOOD UREA NITROGEN 10 MG/DL (7-18); CALCIUM LEVEL 8.8 MG/DL (8.5-10.1); CARBON DIOXIDE LEVEL 29 MEQ/L (21-32); CHLORIDE LEVEL 107 MEQ/L (98-107); CREATININE FOR GFR 0.94 MG/DL (0.55-1.30); GLOMERULAR FILTRATION RATE > 60.0 (>60); GLUCOSE, FASTING 64 MG/DL (70-100); POTASSIUM SERUM 4.2 MEQ/L (3.5-5.1); SODIUM LEVEL 142 MEQ/L (136-145); TOTAL PROTEIN 7.5 GM/DL (6.4-8.2)
== END ==
LOC: M SFHCADAM 11:25
PROVIDERS: ATTEND Physician Assistant Medical
DX: F41.9 Anxiety disorder, unspecified (principal)

== ENCOUNTER → 2018-11-22 | Outpatient (REF) | payer OTHER ==
[2018-11-22 14:11] LABS: BASO % 0.3 % (0.0-1.0); EOS # 0.1 10^3/uL (0.0-0.5); EOS % 1.4 % (0.0-3.0); HEMATOCRIT 47.5 % (36.0-47.0); HEMOGLOBIN 15.9 g/dl (12.0-15.5); LYMPH # 1.4 10^3/uL (1.5-5.0); LYMPH % 21.7 % (24.0-44.0); MEAN CORPUSCULAR HEMOGLOBIN 32.7 pg (27.0-33.0); MEAN CORPUSCULAR HGB CONC 33.5 g/dl (32.0-36.5); MEAN CORPUSCULAR VOLUME 97.7 fl (80.0-96.0); MONO # 0.3 10^3/uL (0.0-0.8); MONO % 5.2 % (0.0-5.0); NEUTROPHILS # 4.7 10^3/uL (1.5-8.5); NEUTROPHILS % 71.2 % (36.0-66.0); PLATELET COUNT, AUTOMATED 133 10^3/uL (150-450); RED BLOOD COUNT 4.86 10^6/uL (4.00-5.40); WHITE BLOOD COUNT 6.5 10^3/uL (4.0-10.0)
[2018-11-22 14:34] LABS: ALBUMIN 4.3 GM/DL (3.2-5.2); ALT/SGPT 19 U/L (12-78); BILIRUBIN,TOTAL 0.7 MG/DL (0.2-1.0); BLOOD UREA NITROGEN 13 MG/DL (7-18); CALCIUM LEVEL 9.2 MG/DL (8.5-10.1); CARBON DIOXIDE LEVEL 28 MEQ/L (21-32); CHLORIDE LEVEL 108 MEQ/L (98-107); CREATININE FOR GFR 1.12 MG/DL (0.55-1.30); GLOMERULAR FILTRATION RATE > 60.0 (>60); GLUCOSE, FASTING 48 MG/DL (70-100); POTASSIUM SERUM 3.9 MEQ/L (3.5-5.1); RHEUMATOID FACTOR QUANT < 10.0 IU/ML (<15.0); SODIUM LEVEL 141 MEQ/L (136-145); TOTAL PROTEIN 7.6 GM/DL (6.4-8.2)
[2018-11-22 14:42] LABS: TOTAL 25(OH) VITAMIN D 28.1 NG/ML (30.0-100.0)
[2018-11-22 14:57] LABS: ERYTHROCYTE SEDIMENTATION RATE 2 mm/hr (0-20)
[2018-11-23 14:52] LABS: ANTINUCLEAR ANTIBODIES DIRECT Negative (Negative)
== END ==
LOC: M LABNEURO 09:01
PROVIDERS: ATTEND Psychiatry & Neurology Neurology
DX: R51 Headache (principal)

== ENCOUNTER → 2019-04-25 | Outpatient (CLI) | payer OTHER ==
--- NOTE | 2019-04-28 01:41 | ECWPNPC ---
PATIENT NAME: LALI JOHN : 1990 GENDER: FEMALE VISIT DATE: 04/25/2019 DISCHARGE DATE: 04/25/19 0000 VISIT LOCKED DATE TIME: PHYSICIAN: SVETA ADAM MD RESOURCE: SVETA ADAM MD REASON FOR APPOINTMENT 1. PRE SEDATE-SPINAL TAP HISTORY OF PRESENT ILLNESS HISTORY OF PRESENT ILLNESS: PAIN THE PATIENT DESCRIBES THE PAIN... 28 YEAR OLD FEMALE PATIENT WITH A HISTORY OF CHRONIC NEUROLOGICAL CHANGES. THE PATIENT SAYS LAST YEAR SHE BEGAN TO EXPERIENCE MIGRAINES AND DIZZINESS UPON STANDING UP. THE PATIENT STATES SHE IS BEING SEEN BY [facility] WHERE THEY ORDERED FOR AN MRI AND SPOTS ON THE BRAIN WERE FOUND. THE PATIENT WAS REFERRED TO OUR CLINIC BY DR. GANDHI FOR A SPINAL TAP TO RULE OUT MULTIPLE SCLEROSIS. THE PATIENT REPORTS EASY BRUISING AND IS UNSURE IF IT IS NORMAL. THE PATIENT STATES SHE HAS A HISTORY OF USING COUMADIN AND LOVENOX FOR TWO YEARS IN THE PAST DUE TO BLOOD CLOTS WHILE SHE WAS WITH HER TWO CHILDREN. PATIENT DENIES UNEXPLAINABLE WEIGHT LOSS, FEVER, CHILLS, NEW CHANGES ON HER URINARY OR BOWEL CONTROL. FALL RISK SCREENING: SCREENING :NO FALLS REPORTED IN THE LAST YEAR PAIN SCREENING: PATIENT HAS A COMPLAINT OF ACUTE OR CHRONIC PAIN :YES CURRENT MEDICATIONS TAKING NORTRIPTYLINE HCL 50 MG CAPSULE 1 CAPSULE ORALLY ONCE A DAY NOT-TAKING KETOCONAZOLE 2 % CREAM 1 APPLICATION TO AFFECTED AREA EXTERNALLY TWICE A DAY MEDICATION LIST REVIEWED AND RECONCILED WITH THE PATIENT PAST MEDICAL HISTORY UNDERWEIGHT DVT POST L LEG 10/04 - NEG HYPERCOAG WORK UP. BERNADETTE DEP BILATERAL BUNIONS ALLERGIES N.K.D.A. SURGICAL HISTORY BUNIONECTOMY BILATERAL 2007 TUBAL LIGATION - DR RODRIGUEZ 11/2013 FAMILY HISTORY FATHER: 52 YRS, UNKNOWN HISTORY MOTHER: 41 YRS, LUNG CA, DIAGNOSED WITH OTHER MALIGNANT NEOPLASM OF UNSPECIFIED SITE SON(S): ALIVE 6 YRS, NO KNOWN MEDICAL PROBLEMS DAUGHTER(S): ALIVE 7 YRS, NO KNOWN MEDICAL PROBLEMS 1 SON(S) , 1 DAUGHTER(S) - HEALTHY. ADOPTED AT 12 YO, FH UNKNOWN. SOCIAL HISTORY GENERAL: TOBACCO USE ARE YOU A:CURRENT SMOKER ARE YOU INTERESTED IN QUITTING?THINKING ABOUT QUITTING WANTS TO START THE PATCH ON WED 3/6 PREVIOUS QUIT ATTEMPTS?YES, MORE THAN 6 MONTHS AGO. COUNSELED THE PATIENT ON SMOKING CESSATION, EDUCATION [id number]/03/2020 HOW MANY CIGARETTES A DAY DO YOU SMOKE?11-20 HOW SOON AFTER YOU WAKE UP DO YOU SMOKE YOUR FIRST CIGARETTE?6-30 MIN HOW OFTEN DO YOU SMOKE CIGARETTES?EVERY DAY PATIENT COUNSELED ON THE DANGERS OF TOBACCO USE AND URGED TO QUIT:04/25/2019 HIV / HEP-C SCREENING HIV TEST OFFERED TO PATIENT:YES DATE OFFERED:09/27/2017 TEST ACCEPTED:NO HEP-C TEST OFFERED TO PATIENT:YES DATE OFFERED:09/27/2017 REASON:PATIENT DECLINED TEST ACCEPTED:NO REASON:PATIENT DECLINED BROCHURE PROVIDED TO PATIENTYES OTHERS AT HOME: CHILDREN, MOTHER, FATHER. EDUCATION LEVEL OF EDUCATION:FINISHED HIGH SCHOOL DIET: EATS WHATEVER SHE WANTS. LANGUAGE LANGUAGES SPOKEN:KENYAN BMI CARE GOAL FOLLOW-UP BELOW NORMAL BMI FOLLOW-UPDIETARY EDUCATION FOR WEIGHT GAIN RECREATIONAL DRUG USE DRUG USE?NO LEARNING BARRIERS / SPECIAL NEEDS BARRIERS TO LEARNING?NO HEARING IMPAIRED?NO VISION IMPAIRED?YES :CORRECTIVE LENSES COGNITIVELY IMPAIRED?NO READINESS TO LEARN?YES LEARNING PREFERENCES?YES :TAPES/VIDEOS, BOOKLETS, HANDOUTS, CLASSES, DEMONSTRATION/VERBAL INSTRUCTION LEARNING CAPABILITIES PRESENT?YES EMOTIONAL BARRIERS?NO SPECIAL DEVICES?NO BAND STRAIGHTENER NEEDED?NO LUNG CANCER SCREENING SMOKING STATUS:CURRENT SMOKER PAIN CLINIC PFS, CLERGY, PUBLIC HEALTH REFERRALS HAS THE PATIENT BEEN EDUCATED REGARDING HIS/HER PLAN OF CARE?YES HAS THE PATIENT BEEN EDUCATED REGARDING PAIN, THE RISK FOR PAIN, THE IMPORTANCE OF EFFECTIVE PAIN MANAGEMENT, AND THE PAIN ASSESSMENT PROCESS?YES LATEX QUESTIONNAIRE LATEX ALLERGY : HAVE YOU EVER DEVELOPED ANY TYPE OF REACTION AFTER HANDLING LATEX PRODUCTS SUCH RUBBER GLOVES, CONDOMS, DIAPHRAGMS, BALLOONS, SOCKS, OR UNDERWEAR?NO LATEX ALLERGY : HAVE YOU EVER DEVELOPED ANY TYPE OF REACTION DURING OR AFTER DENTAL APPOINTMENT, VAGINAL/RECTAL EXAMINATION, SURGICAL PROCEDURE, OR ANY OTHER EXPOSURE?NO LATEX RISK : HAVE YOU EVER HAD ANY DIFFICULTY BREATHING OR HIVES AFTER EATING OR HANDLING ANY FRUITS, OR VEGETABLES; SUCH KIWI, BANANAS, STONE FRUITS, OR CHESTNUTSNO LATEX RISK : DO YOU HAVE A PREVIOUS PERSONAL HISTORY OF MORE THAN NINE SURGERIES, SPINA BIFIDA, OR REPEATED CATHERIZATIONS? NO LATEX RISK : ARE YOU FREQUENTLY EXPOSED TO LATEX PRODUCTS IN YOUR OCCUPATION?NO DATE ASKED : 04/25/[address] VELAZCO DAILY. ADVANCE DIRECTIVE ADVANCE DIRECTIVE DISCUSSED WITH PATIENT:YES 04/25/2019 PT DOES NOT HAVE ANY ADVANCED DIRECTIVES AND SHE DECLINES INFORMATION ON HCP AT THIS TIME. AD MUSLIM [id number] NONE MARITAL STATUS: . 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 SEXUAL HX HAD SEX IN THE LAST 12 MONTHS (VAGINAL, ORAL, OR ANAL)?YES WITHMEN ONLY USE PROTECTION?NO HOSPITALIZATION/MAJOR DIAGNOSTIC PROCEDURE VAGINAL DELIVERIES 2012, 2013 REVIEW OF SYSTEMS CONSTITUTIONAL: ANY CHANGE IN YOUR MEDICAL CONDITION? NO . CHILLS NO . FEVER NO . INFECTION: DO YOU HAVE NEW INFECTIONS? NO . DO YOU HAVE HISTORY OF MRSA? NO . MUSCULOSKELETAL: ANY NEW PATTERNS OF PAIN OR NUMBNESS? NO . SYTEMIC LUPUS NO . GASTROENTEROLOGY: ANY NEW CHANGE IN BOWEL CONTROL? NO . BARRETTS ESOPHAGUS NO . CIRRHOSIS NO . HEPATITIS NO . LIVER FAILURE NO . ACID REFLUX NO . UNEXPLAINED WEIGHT LOSS NO . GENITOURINARY: ANY NEW CHANGE IN BLADDER CONTROL? NO . IS THERE A CHANCE YOU COULD BE ? NO . HEMATOLOGY/LYMPH: DO YOU TAKE ANY BLOOD THINNERS? (FOR EXAMPLE- COUMADIN, PLAVIX, AGGRENOX, PLATEL, PRADAXA, OR XARELTO) NO . WHEN WAS YOUR LAST DOSE? DATE: TIME: . LOW PLATELET COUNT NO . SICKLE CELL DISEASE NO . VON WILLIEBRANDS NO . FACTOR V LEIDEN NO . THALLASEMIA NO . ANEMIA NO . EASY BRUISING YES, NOT ON ANTICOAGULANTS HX OF DVT'S WITH PREGNACY-WAS ON COUMADIN AND LOVENOX WHILE PREG. BOTH TIMES. THESE WERE DISCONTINUED 11/2013 . NEUROLOGY: HAVE YOU FALLEN IN THE PAST 12 MONTHS? NO . ANY NEW EXTREMITY NUMBNESS OR WEAKNESS? YES, SOME TIMES IT HURTS TO TOUCH ARMS AND LEGS . HEAD INJURY NO . DEMENTIA NO . CEREBRAL PALSY NO . MULTIPLE SCLEROSIS NO . DIZZINESS YES, INTERMITTENT DIZZINESS-ROSALIE. WHEN STANDING UP . HEADACHE ADMITS, ASSOCIATED WITH NAUSEA, ASSOCIATED WITH PHOTOPHOBIA, DULL ACHE, THROBBING, INTERMITTENT, INFREQUENT , FREQUENT , IMPROVING, POUNDING, SEVERE . STROKES NO . VERTIGO SENSATION OF IMBALANCE, WHILE GETTING UP FROM A SITTING POSITION, YES . CARDIOLOGY: DO YOU HAVE A PACEMAKER OR DEFIBRILLATOR? NO . ANGINA NO . HEART ATTACK NO . HEART SURGERY NO . CONGESTIVE HEART FAILURE/FLUID OVERLOAD NO . CHEST PAIN NO . HIGH BLOOD PRESSURE NO . IRREGULAR HEART BEAT NO . RESPIRATORY: HAVE YOU BEEN SICK IN THE PAST WEEK? NO . FEVER NO . FLU LIKE SYMPTOMS? NO . CPAP NO . BYPAP NO . ASTHMA NO . EMPHYSEMA NO . CHRONIC LUNG DISEASES NO . SHORTNESS OF BREATH ON EXERTION NO . COUGH NO . SNORING NO . INTEGUMENTARY: DO YOU HAVE ANY RASHES OR OPEN SORES? NO . ALLERGIC/IMMUNO: ARE YOU ALLERGIC TO IV DYE? NO . ANY NEW ALLERGIES? NO . PSYCHIATRIC: DO YOU HAVE THOUGHTS OF HURTING YOURSELF OR SOMEONE ELSE? NO . ARE YOU ABUSED, NEGLECTED, OR IN AN UNSAFE ENVIRONMENT? NO . ENDOCRINOLOGY: ARE YOU DIABETIC? NO . THYROID DISORDER NO . OTHER: DO YOU NEED ANY PRESCRIPTIONS? NO . IF YES, PLEASE LIST: ____ . ANY NEW PROBLEMS WITH YOUR MEDICATIONS? NO . WHEN DID YOU LAST EAT? ____ . WHEN DID YOU LAST DRINK? ____ . WHAT DID YOU LAST DRINK? ____ . NAME OF PERSON DRIVING YOU HOME? ____ . DO YOU HAVE ANY OTHER QUESTIONS OR CONCERNS NO . VITAL SIGNS WT 127 LBS, HT 5'7", BMI 19.89 INDEX, BP 122/77 MM HG, HR 88 /MIN, RR 18 /MIN, TEMP 97.0 F, OXYGEN SAT % 100%, SAFE IN ENV? (Y/N) Y, NA INITIALS AW 1541, REVIEWED BY: AD. EXAMINATION GENERAL EXAMINATION: PATIENT IS ALERT O X 3 AND COOPERATIVE. ASSESSMENTS NEUROLOGICAL SYMPTOMS - R29.90 (PRIMARY) R/O MSR/O POSSIBLE COAGULOPATHY. TREATMENT OTHERS CLINICAL NOTES: WE DISCUSSED SEVERAL ISSUES WITH MS. JOHN'S CASE. I DISCUSSED WITH THE PATIENT ABOUT THE POTENTIAL COMPLICATIONS DUE TO THE PATIENT REPORTING EASY BRUISING AND HISTORY OF COUMADIN AND LOVENOX USAGE IN THE PAST. WE AGREED TO HOLD OFF ON THE SPINAL TAP IN ORDER TO RULE OUT ANY COAGULOPATHIES. I WILL REQUEST FOR A CLEARANCE FROM THE PATIENT'S PRIMARY CARE PROVIDER AT [facility]. I WOULD LIKE TO REVIEW THE CLEARANCE BEFORE THE PATIENT IS BOOKED AGAIN. INSTRUCTIONS WERE GIVEN, QUESTIONS WERE ANSWERED, PATIENT REPORTS UNDERSTANDING AND AGREES WITH THE PLAN. I, SELINA BALLESTEROS, DOCUMENTED THE ABOVE INFORMATION ACTING A SCRIBE FOR DR. ADAM. I HAVE REVIEWED THE ABOVE DOCUMENT, WRITTEN BY SELINA CHONG AND I VERIFY THAT IT IS ACCURATE. . PROCEDURE CODES FA211 ESTABILISHED PATIENT [facility] FACILITY CHARGE G8427 CURRENT MEDS W/DOSAGES DOCUMENTED G8730 PAIN ASSESS POS TOOL F/U PLAN DOC DISPOSITION & COMMUNICATION FOLLOW UP REASON: PT NEEDS PCP CLEARANCE FOR COAGULOPATHY (EASY BRUISING), F/UP DR Schwartz AFTER CLEARANCE, DO NOT BOOK UNTIL DR Schwartz CHECKS CLEARANCE AND APPROVES ELECTRONICALLY SIGNED BY SVETA ADAM MD, ON 04/27/2019 AT 05:11 PM EST DISCLAIMER : THIS IS A VISIT SUMMARY EXTRACTED FROM THE [employer] CHART. IT IS NOT A COPY OF THE [employer] PROGRESS NOTE. MTDD
== END ==
LOC: M PAIN 14:30
PROVIDERS: ATTEND Anesthesiology
DX: R29.90 Unspecified symptoms and signs involving the nervous system (principal); G89.29 Other chronic pain; Z86.718 Personal history of other venous thrombosis and embolism; F17.210 Nicotine dependence, cigarettes, uncomplicated; Z79.899 Other long term (current) drug therapy

== ENCOUNTER → 2019-05-12 | Outpatient (REF) | payer OTHER | LOC: M SFHCADAM 10:15 | PROVIDERS: ATTEND Physician Assistant Medical | DX: R23.8 Other skin changes (principal) ==

== ENCOUNTER 2019-07-21 19:10 | Emergency (ER) | payer OTHER ==
[~2019-07-21] VITALS: Ht 175.3 cm; Wt 58.7 kg
[2019-07-21] MEDS ORDERED: NORT75CA2 PO (19:16)
[2019-07-21] MEDS ORDERED: KEPP1TAB PO (19:16)
[2019-07-21 20:15] LABS: BASO % 0.3 % (0.0-1.0); EOS # 0.2 10^3/uL (0.0-0.5); EOS % 1.8 % (0.0-3.0); HEMATOCRIT 40.6 % (36.0-47.0); HEMOGLOBIN 14.3 g/dl (12.0-15.5); LYMPH # 2.3 10^3/uL (1.5-5.0); LYMPH % 23.1 % (24.0-44.0); MEAN CORPUSCULAR HGB CONC 35.2 g/dl (32.0-36.5); MEAN CORPUSCULAR VOLUME 93.8 fl (80.0-96.0); MONO # 0.6 10^3/uL (0.0-0.8); MONO % 5.6 % (0.0-5.0); NEUTROPHILS % 68.9 % (36.0-66.0); PLATELET COUNT, AUTOMATED 144 10^3/uL (150-450); RED BLOOD COUNT 4.33 10^6/uL (4.00-5.40); WHITE BLOOD COUNT 10.1 10^3/uL (4.0-10.0)
--- NOTE | 2019-07-21 20:34 | REPVR ---
PROCEDURE INFORMATION: Exam: CT Head Without Contrast Exam date and time: 07/21/2019 8:24 PM Age: 29 years old Clinical indication: Numbness / parasthesia; Additional info: Facial numbness TECHNIQUE: Imaging protocol: Computed tomography of the head without contrast. Radiation optimization: All CT scans at this facility use at least one of these dose optimization techniques: automated exposure control; mA and/or kV adjustment per patient size (includes targeted exams where dose is matched to clinical indication); or iterative reconstruction. COMPARISON: CT Head without contrast 10/30/2018 6:13 PM FINDINGS: Brain: Normal. No hemorrhage. Unremarkable white matter. No mass effect. Ventricles: Normal. No ventriculomegaly. Bones/joints: Unremarkable. No acute fracture. Sinuses: Visualized sinuses are unremarkable. No fluid levels. Mastoid air cells: Visualized mastoid air cells are well aerated. Auditory system: Mild stranding in the right middle ear cavity may indicate mild otitis media. Soft tissues: Unremarkable. IMPRESSION: No acute intracranial findings. Electronically signed by: Jayme Calles On 07/21/2019 20:34:19 PM
[2019-07-21 20:47] LABS: CK-MB VALUE MASS < 1.0 NG/ML (<3.6); CPK CREATINE PHOSPHOKINASE 63 U/L (26-192); MB/CK RELATIVE INDEX 1.59 (< OR =4); TROPONIN I < 0.02 NG/ML (< 0.10)
[2019-07-21 22:09] LABS: VITAMIN B12 LEVEL 385 PG/ML (247-911)
--- NOTE | 2019-07-21 22:37 | REPVR ---
PROCEDURE INFORMATION: Exam: MR Head Without Contrast Exam date and time: 07/21/2019 10:18 PM Age: 29 years old Clinical indication: Numbness / parasthesia; Right; Additional info: R facial and tongue numbness TECHNIQUE: Imaging protocol: MR of the head without contrast. COMPARISON: CT Head without contrast 07/21/2019 8:21 PM FINDINGS: Brain: Normal. No acute infarct. No hemorrhage. No significant white matter disease. No edema. Ventricles: Normal. No ventriculomegaly. Bones/joints: Unremarkable. Sinuses: Normal as visualized. No acute sinusitis. Mastoid air cells: Normal as visualized. No mastoid effusion. Orbits: Unremarkable. Soft tissues: Unremarkable. IMPRESSION: No acute findings. Electronically signed by: Jayme Calles On 07/21/2019 22:31:29 PM
[2019-07-21 23:12] VITALS: BP 114/57
--- NOTE | 2019-07-22 00:23 | ECGEPIP ---
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
[2019-07-26 16:08] LABS: Lyme Disease IgG/IgM Antibodie <0.91 ISR (0.00-0.90); Lyme Disease IgM Ab Quantitati <0.80 index (0.00-0.79); VITAMIN B1 LEVEL WHOLE BLOOD 154.7 nmol/L (66.5-200.0)
== END 2019-07-21 23:13 | disposition home or self-care (01) ==
LOC: M ED 19:10
DX: R20.0 Anesthesia of skin (principal); Z86.718 Personal history of other venous thrombosis and embolism; Z79.899 Other long term (current) drug therapy; F17.210 Nicotine dependence, cigarettes, uncomplicated

== ENCOUNTER → 2019-08-11 | Outpatient (CLI) | payer OTHER ==
[~2019-08-11] MED LIST changes: +KEPP1TAB PO; +NORT75CA2 PO
--- NOTE | 2019-08-15 04:45 | ECWPNPC ---
PATIENT NAME: LALI JOHN : 1990 GENDER: FEMALE VISIT DATE: 08/11/2019 DISCHARGE DATE: 08/11/19 1335 VISIT LOCKED DATE TIME: PHYSICIAN: SVETA ADAM MD RESOURCE: SVETA ADAM MD REASON FOR APPOINTMENT 1. PRE SEDATE-SPINAL TAP HISTORY OF PRESENT ILLNESS GENERAL: 29 YEAR OLD FEMALE PATIENT WITH A HISTORY OF CHRONIC NEUROLOGICAL CHANGES SUCH HEADACHES AND TINGLING IN FEET. THE PATIENT WAS SEEN AND REFERRED TO OUR CLINIC BY HER NEUROLOGIST, DR. GANDHI, TO HAVE A SPINAL TAP TO RULE OUT MULTIPLE SCLEROSIS. THE PATIENT WAS CLEARED FROM ANY COAGULOPATHIES BY HER PRIMARY CARE PROVIDER. THE PATIENT DENIES UNEXPLAINED WEIGHT LOSS, FEVER, CHILLS, NEW CHANGES IN HER URINARY OR BOWEL CONTROL. CURRENT MEDICATIONS TAKING NORTRIPTYLINE HCL 50 MG CAPSULE 1 CAPSULE ORALLY ONCE A DAY TAKING KEPPRA 250 MG TABLET 150MG ORALLY BID NOT-TAKING KETOCONAZOLE 2 % CREAM 1 APPLICATION TO AFFECTED AREA EXTERNALLY TWICE A DAY NOT-TAKING WELLBUTRIN SR 150 MG TABLET EXTENDED RELEASE 12 HOUR 1 TAB ORALLY TWICE DAILY MEDICATION LIST REVIEWED AND RECONCILED WITH THE PATIENT PAST MEDICAL HISTORY UNDERWEIGHT DVT POST L LEG 10/04 - NEG HYPERCOAG WORK UP. 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 1 SON(S) , 1 DAUGHTER(S) - HEALTHY. ADOPTED AT 12 YO, FH UNKNOWN. SOCIAL HISTORY GENERAL: TOBACCO USE ARE YOU A:CURRENT SMOKER ARE YOU INTERESTED IN QUITTING?THINKING ABOUT QUITTING WANTS TO START THE PATCH ON WED 3/6 PREVIOUS QUIT ATTEMPTS?YES, MORE THAN 6 MONTHS AGO. COUNSELED THE PATIENT ON SMOKING CESSATION, EDUCATION [id number]/2020 HOW MANY CIGARETTES A DAY DO YOU SMOKE?6-10 HOW SOON AFTER YOU WAKE UP DO YOU SMOKE YOUR FIRST CIGARETTE?6-30 MIN HOW OFTEN DO YOU SMOKE CIGARETTES?EVERY DAY PATIENT COUNSELED ON THE DANGERS OF TOBACCO USE AND URGED TO QUIT:05/12/2019 LATEX QUESTIONNAIRE LATEX ALLERGY : HAVE YOU EVER DEVELOPED ANY TYPE OF REACTION AFTER HANDLING LATEX PRODUCTS SUCH RUBBER GLOVES, CONDOMS, DIAPHRAGMS, BALLOONS, SOCKS, OR UNDERWEAR?NO LATEX ALLERGY : HAVE YOU EVER DEVELOPED ANY TYPE OF REACTION DURING OR AFTER DENTAL APPOINTMENT, VAGINAL/RECTAL EXAMINATION, SURGICAL PROCEDURE, OR ANY OTHER EXPOSURE?NO LATEX RISK : HAVE YOU EVER HAD ANY DIFFICULTY BREATHING OR HIVES AFTER EATING OR HANDLING ANY FRUITS, OR VEGETABLES; SUCH KIWI, BANANAS, STONE FRUITS, OR CHESTNUTSNO LATEX RISK : DO YOU HAVE A PREVIOUS PERSONAL HISTORY OF MORE THAN NINE SURGERIES, SPINA BIFIDA, OR REPEATED CATHERIZATIONS? NO LATEX RISK : ARE YOU FREQUENTLY EXPOSED TO LATEX PRODUCTS IN YOUR OCCUPATION?NO DATE ASKED : 04/25/2019 LUNG CANCER SCREENING SMOKING STATUS:CURRENT SMOKER BMI CARE GOAL FOLLOW-UP BELOW NORMAL BMI FOLLOW-UPDIETARY EDUCATION FOR WEIGHT GAIN ALCOHOL SCREENING DID YOU HAVE A DRINK CONTAINING ALCOHOL IN THE PAST YEAR?NO POINTS0 INTERPRETATIONNEGATIVE RECREATIONAL DRUG USE DRUG USE?NO CAFFEINE [address] PEPPER DAILY. SEXUAL HX HAD SEX IN THE LAST 12 MONTHS (VAGINAL, ORAL, OR ANAL)?YES WITHMEN ONLY USE PROTECTION?NO HIV / HEP-C SCREENING HIV TEST OFFERED TO PATIENT:YES DATE OFFERED:09/27/2017 TEST ACCEPTED:NO HEP-C TEST OFFERED TO PATIENT:YES DATE OFFERED:09/27/2017 REASON:PATIENT DECLINED TEST ACCEPTED:NO REASON:PATIENT DECLINED BROCHURE PROVIDED TO PATIENTYES CONGREGATIONAL [id number] NONE LANGUAGE LANGUAGES SPOKEN:DANISH EDUCATION LEVEL OF EDUCATION:FINISHED HIGH SCHOOL LEARNING BARRIERS / SPECIAL NEEDS BARRIERS TO LEARNING?NO HEARING IMPAIRED?NO VISION IMPAIRED?YES COGNITIVELY IMPAIRED?NO :CORRECTIVE LENSES READINESS TO LEARN?YES LEARNING PREFERENCES?YES :TAPES/VIDEOS, BOOKLETS, HANDOUTS, CLASSES, DEMONSTRATION/VERBAL INSTRUCTION LEARNING CAPABILITIES PRESENT?YES EMOTIONAL BARRIERS?NO SPECIAL DEVICES?NO CALCULUS PROFESSOR NEEDED?NO OCCUPATION: LAID OFF DURING . DIET: EATS WHATEVER SHE WANTS. MARITAL STATUS: , FROM [facility] 01/2019. OTHERS AT HOME: CHILDREN, PARENTS. PAIN CLINIC PFS, CLERGY, PUBLIC HEALTH REFERRALS HAS THE PATIENT BEEN EDUCATED REGARDING HIS/HER PLAN OF CARE?YES HAS THE PATIENT BEEN EDUCATED REGARDING PAIN, THE RISK FOR PAIN, THE IMPORTANCE OF EFFECTIVE PAIN MANAGEMENT, AND THE PAIN ASSESSMENT PROCESS?YES ADVANCE DIRECTIVE ADVANCE DIRECTIVE DISCUSSED WITH PATIENT:YES PT DOES NOT HAVE ANY ADVANCED DIRECTIVES AND SHE DECLINES INFORMATION ON HCP AT THIS TIME. HOSPITALIZATION/MAJOR DIAGNOSTIC PROCEDURE VAGINAL DELIVERIES 2012, 2013 REVIEW OF SYSTEMS CONSTITUTIONAL: ANY RECENT FEVER NO . CHILLS NO . WEIGHT CHANGE OF UNKNOWN REASONS NO . MUSCULOSKELETAL: ANY UNUSUAL JOINT PAIN OR SWELLING NOT MENTIONED NO . SYSTEMIC LUPUS NO . ANY NEUROMUSCULAR DISORDER NOT MENTIONED NO . LYME DISEASE NO . GASTROENTEROLOGY: ANY NEW CHANGE IN BOWEL CONTROL? NO . HISTORY OF LIVER DISORDER NOT MENTIONED NO . HISTORY OF UNUSUAL ABDOMINAL PAIN OR CRAMPING NOT MENTIONED NO . NO CONSTIPATION. GENITOURINARY: ANY NEW CHANGE IN BLADDER CONTROL? NO . ANY RENAL/KIDNEY CONDITON NOT MENTIONED NO . NEUROLOGY: HISTORY OF TBI NOT MENTIONED NO . OTHER NEW NUMBNESS OR PAIN PATTERNS NOT MENTIONED NO . NEW ONSET DIZZINESS OR NEUROLOGICAL CHANGES NOT MENTIONED NO . HISTORY OF SEVERE HEADACHES NOT MENTIONED NO . HISTORY OF STROKE OR NEUROLOGICAL DISORDER NOT MENTIONED NO . CARDIOLOGY: HEART SURGERY NO . CONGESTIVE HEART FAILURE/FLUID OVERLOAD NOT MENTIONED NO . HISTORY OF CHEST PAIN,IRREGULAR HEART BEAT NOT MENTIONED NO . RESPIRATORY: SHORTNESS OF BREATH ON EXERTION, WHEEZES, UNUSUAL COUGH NOT MENTIONED NO . ENDOCRINOLOGY: ADRENAL GLAND OR THYROID DISORDERS NOT MENTIONED NO . UNUSUAL URINATION, DIZZINESS OR LETHARGY NOT MENTIONED NO . VITAL SIGNS WT 125.6 LBS, HT 5'7", BMI 19.67 INDEX, BP 98/64 MM HG, HR 83 /MIN, RR 16 /MIN, TEMP 97.5 F, OXYGEN SAT % 100%, NA INITIALS SC 10:10. EXAMINATION GENERAL: PATIENT IS ALERT O X 3 AND COOPERATIVE. LUNGS CLEAR, TO AUSCULTATION. HEART: NO MURMURS OR GALLOPS; FACIAL CRANIAL NERVES ARE GROSSLY NORMAL. GOOD SYMMETRY OF FACIAL MUSCLE MOVEMENT. NORMAL VISUAL HALLMAN. BOTH LEGS ARE WEAK AT EXTENSION AND FLEXION. ASSESSMENTS NEUROLOGICAL SYMPTOMS - R29.90 (PRIMARY) R/O MULTIPLE SCLEROSIS. TREATMENT NEUROLOGICAL SYMPTOMS CLINICAL NOTES: WE DISCUSSED SEVERAL ISSUES WITH MS. JOHN'S CASE. WE AGREE ON DOING A SPINAL TAP WITH IV SEDATION REQUESTED BY THE PATIENT'S NEUROLOGIST, DR. GANDHI, IN SEVERAL WEEKS. PATIENT WAS CLEARED BY HER PRIMARY CARE PROVIDER INCLUDING COAGULOPATHIES. INSTRUCTIONS WERE GIVEN, QUESTIONS WERE ANSWERED, PATIENT REPORTS UNDERSTANDING AND AGREES WITH THE PLAN. ISELINA, DOCUMENTED THE ABOVE INFORMATION ACTING A SCRIBE FOR DR. ADAM. I HAVE REVIEWED THE ABOVE DOCUMENT, WRITTEN BY SELINA BALLESTEROS SCRIBJojo AND I VERIFY THAT IT IS ACCURATE. . OTHERS CLINICAL NOTES: PRE SCREENING CALL DONE 08/10/19 EM. PROCEDURE CODES [id number] ESTABILISHED PATIENT [facility] CHARGE [id number] CURRENT MEDS W/DOSAGES DOCUMENTED [id number] PAIN ASSESS POS TOOL F/U PLAN DOC DISPOSITION & COMMUNICATION FOLLOW UP 2 WEEKS (REASON: SPINAL TAP WITH IV SEDATE) ELECTRONICALLY SIGNED BY SVETA ADAM MD, MD ON 08/14/2019 AT 12:52 PM EDT DISCLAIMER : THIS IS A VISIT SUMMARY EXTRACTED FROM THE [employer] CHART. IT IS NOT A COPY OF THE [employer] PROGRESS NOTE. JOSELYN
== END ==
LOC: M PAIN 10:00
PROVIDERS: ATTEND Anesthesiology
DX: R29.90 Unspecified symptoms and signs involving the nervous system (principal)

== ENCOUNTER → 2019-08-12 | Outpatient (CLI) | payer OTHER | LOC: M LABSMTC 08:53 | PROVIDERS: ATTEND Anesthesiology | DX: Z11.59 Encounter for screening for other viral diseases (principal) | CPT/HCPCS: C9803; U0003 ==

== ENCOUNTER → 2019-08-15 | Outpatient (CLI) | payer OTHER ==
[~2019-08-15] MED LIST changes: +LIDOCAINE 1% SDV 30ML VIAL As Ordered ONE; +MIDAZOLAM INJ 2MG/2ML VIAL (J2250 PER 1MG) As Ordered ONE; +fentaNYL 100 MCG/2 ML INJECTION (J3010) As Ordered ONE
[2019-08-16 12:06] LABS: CSF TUBE# GLU TUBE 1; CSF TUBE# TP TUBE 1; GLUCOSE CSF 54 MG/DL (40-75); TOTAL PROTEIN,CSF 32 MG/DL (15-45)
[2019-08-16 15:56] LABS: APPEARANCE, CSF CLEAR (CLEAR); COLOR, CSF COLORLESS (COLORLESS); CSF TUBE# CELL CNT TUBE 3
--- NOTE | 2019-08-17 03:28 | ECWPNPC ---
PATIENT NAME: LALI JOHN : 1990 GENDER: FEMALE VISIT DATE: 08/15/2019 DISCHARGE DATE: 08/15/19 1505 VISIT LOCKED DATE TIME: PHYSICIAN: SVETA ADAM MD RESOURCE: SVETA ADAM MD REASON FOR APPOINTMENT 1. SPINAL TAP HISTORY OF PRESENT ILLNESS GENERAL: -. FALL RISK SCREENING: SCREENING :NO FALLS REPORTED IN THE LAST YEAR PAIN SCREENING: PATIENT HAS A COMPLAINT OF ACUTE OR CHRONIC PAIN :YES LOCATION OF PAIN:LEG(S) INTENSITY OF PAIN (SCALE OF 1 TO 10):5 WHAT DOES YOUR PAIN FEEL LIKE:ACHING, CONTINOUS, SORE DURATION:CONTINOUS, CONSTANT, STEADY PAIN IS INCREASED BY: WALKING PAIN IS DECREASED BY: REST NURSING NOTE: -. PAIN CENTER INTAKE QUESTIONS: DO YOU HAVE A HISTORY OF MRSA? :NO DO YOU TAKE A BLOOD THINNERS? :NO DO YOU HAVE ANY BLEEDING DISORDERS? :NO ANY NEW NUMBNESS OR WEAKNESS IN YOUR LEGS OR ARMS? :NO ANY PACEMAKER,DEFIBRILLATOR, OR DORSAL COLUMN STIMULATOR? :NO DO YOU HAVE ANY RASHES OR OPEN SORES? :NO ARE YOU ALLERGIC TO IV DYE? :NO ARE YOU DIABETIC? :NO ANY NEW PROBLEMS WITH YOUR MEDICATIONS? :NO HAVE YOU RECEIVED A VACCINE IN THE PAST 30 DAYS? :NO DO YOU PLAN TO RECEIVE A VACCINE IN THE NEXT 21 DAYS? :NO DO YOU TAKE ANY IMMUNOSUPPRESSIVE MEDICATIONS? :NO ANY HISTORY OF SEIZURES? :YES DUE TO WELLBUTRIN-LAST ONE 05/26/2019 ANY HISTORY OF CARDIAC ISSUES OR EVENTS? :NO DO YOU HAVE SLEEP APNEA? :NO ANY RECENT HEAD INJURY? :NO DO YOU HAVE ANY NEW INFECTIONS? :NO IS THERE A CHANCE YOU COULD BE ? :NO ARE YOU BREAST FEEDING? :NO WHEN DID YOU LAST EAT? : 08/14/2019 2130 WHEN DID YOU LAST DRINK? : 08/15/2019 1030 WHAT DID YOU LAST DRINK? : WATER NAME OF PERSON DRIVING YOU HOME? : HETAL ALCALA CURRENT MEDICATIONS TAKING NORTRIPTYLINE HCL 50 MG CAPSULE 1 CAPSULE ORALLY ONCE A DAY, NOTES: 08/14/2019 2100 TAKING KEPPRA 500 MG TABLET 1 TABLET ORALLY BID, NOTES: 08/15/2019 0630 NOT-TAKING KETOCONAZOLE 2 % CREAM 1 APPLICATION TO AFFECTED AREA EXTERNALLY TWICE A DAY NOT-TAKING WELLBUTRIN SR 150 MG TABLET EXTENDED RELEASE 12 HOUR 1 TAB ORALLY TWICE DAILY MEDICATION LIST REVIEWED AND RECONCILED WITH THE PATIENT PAST MEDICAL HISTORY UNDERWEIGHT DVT POST L LEG 10/04 - NEG HYPERCOAG WORK UP. 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 1 SON(S) , 1 DAUGHTER(S) - HEALTHY. ADOPTED AT 13 YO, FH UNKNOWN. SOCIAL HISTORY GENERAL: TOBACCO USE ARE YOU A:CURRENT SMOKER ARE YOU INTERESTED IN QUITTING?THINKING ABOUT QUITTING WANTS TO START THE PATCH ON Wed/ PREVIOUS QUIT ATTEMPTS?YES, MORE THAN 6 MONTHS AGO. COUNSELED THE PATIENT ON SMOKING CESSATION, EDUCATION [id number]/18/2020 HOW MANY CIGARETTES A DAY DO YOU SMOKE?6-10 HOW SOON AFTER YOU WAKE UP DO YOU SMOKE YOUR FIRST CIGARETTE?6-30 MIN HOW OFTEN DO YOU SMOKE CIGARETTES?EVERY DAY PATIENT COUNSELED ON THE DANGERS OF TOBACCO USE AND URGED TO QUIT:08/14/2019 LATEX QUESTIONNAIRE LATEX ALLERGY : HAVE YOU EVER DEVELOPED ANY TYPE OF REACTION AFTER HANDLING LATEX PRODUCTS SUCH RUBBER GLOVES, CONDOMS, DIAPHRAGMS, BALLOONS, SOCKS, OR UNDERWEAR?NO LATEX ALLERGY : HAVE YOU EVER DEVELOPED ANY TYPE OF REACTION DURING OR AFTER DENTAL APPOINTMENT, VAGINAL/RECTAL EXAMINATION, SURGICAL PROCEDURE, OR ANY OTHER EXPOSURE?NO LATEX RISK : HAVE YOU EVER HAD ANY DIFFICULTY BREATHING OR HIVES AFTER EATING OR HANDLING ANY FRUITS, OR VEGETABLES; SUCH KIWI, BANANAS, STONE FRUITS, OR CHESTNUTSNO LATEX RISK : DO YOU HAVE A PREVIOUS PERSONAL HISTORY OF MORE THAN NINE SURGERIES, SPINA BIFIDA, OR REPEATED CATHERIZATIONS? NO LATEX RISK : ARE YOU FREQUENTLY EXPOSED TO LATEX PRODUCTS IN YOUR OCCUPATION?NO DATE ASKED : 08/15/2019 LUNG CANCER SCREENING SMOKING STATUS:CURRENT SMOKER BMI CARE GOAL FOLLOW-UP BELOW NORMAL BMI FOLLOW-UPDIETARY EDUCATION FOR WEIGHT GAIN ALCOHOL SCREENING DID YOU HAVE A DRINK CONTAINING ALCOHOL IN THE PAST YEAR?NO POINTS0 INTERPRETATIONNEGATIVE RECREATIONAL DRUG USE DRUG USE?NO CAFFEINE [address] PEPPER DAILY. SEXUAL HX HAD SEX IN THE LAST 12 MONTHS (VAGINAL, ORAL, OR ANAL)?YES WITHMEN ONLY USE PROTECTION?NO HIV / HEP-C SCREENING HIV TEST OFFERED TO PATIENT:YES DATE OFFERED:09/27/2017 TEST ACCEPTED:NO HEP-C TEST OFFERED TO PATIENT:YES DATE OFFERED:09/27/2017 REASON:PATIENT DECLINED TEST ACCEPTED:NO REASON:PATIENT DECLINED BROCHURE PROVIDED TO PATIENTYES ZOROASTRIAN [id number] NONE LANGUAGE LANGUAGES SPOKEN:TURKISH EDUCATION LEVEL OF EDUCATION:FINISHED HIGH SCHOOL LEARNING BARRIERS / SPECIAL NEEDS BARRIERS TO LEARNING?NO HEARING IMPAIRED?NO VISION IMPAIRED?YES :CORRECTIVE LENSES COGNITIVELY IMPAIRED?NO READINESS TO LEARN?YES LEARNING PREFERENCES?YES :TAPES/VIDEOS, BOOKLETS, HANDOUTS, CLASSES, DEMONSTRATION/VERBAL INSTRUCTION LEARNING CAPABILITIES PRESENT?YES EMOTIONAL BARRIERS?NO SPECIAL DEVICES?NO DAIRY CLERK NEEDED?NO DOMESTIC VIOLENCE DO YOU FEEL SAFE IN YOUR ENVIRONMENT?YES OCCUPATION: LAID OFF DURING COVID19. DIET: EATS WHATEVER SHE WANTS. MARITAL STATUS: , FROM [facility] 01/2019. OTHERS AT HOME: CHILDREN, PARENTS. PAIN CLINIC PFS, CLERGY, PUBLIC HEALTH REFERRALS HAS THE PATIENT BEEN EDUCATED REGARDING HIS/HER PLAN OF CARE?YES HAS THE PATIENT BEEN EDUCATED REGARDING PAIN, THE RISK FOR PAIN, THE IMPORTANCE OF EFFECTIVE PAIN MANAGEMENT, AND THE PAIN ASSESSMENT PROCESS?YES ADVANCE DIRECTIVE ADVANCE DIRECTIVE DISCUSSED WITH PATIENT:YES 08/14/2019 PT DOES NOT HAVE ANY ADVANCED DIRECTIVES AND SHE DECLINES INFORMATION ON HCP AT THIS TIME. HOSPITALIZATION/MAJOR DIAGNOSTIC PROCEDURE VAGINAL DELIVERIES 2012, 2013 VITAL SIGNS WT 125.8 LBS, HT 5'7", BMI 19.70 INDEX, BP 112/71 MM HG, HR 81 /MIN, RR 18 /MIN, TEMP 97.5 F, OXYGEN SAT % 99%, SAFE IN ENV? (Y/N) YES, NA INITIALS AW 1252, REVIEWED BY: MELIDA. ASSESSMENTS NEUROLOGICAL SYMPTOMS - R29.90 (PRIMARY), RULE OUT MULTIPLE SCLEROSIS PROCEDURES PAIN NURSING RECORD PRE-PROCEDURE IV SITE RIGHT HAND OBTAINED BY Jonathon LOPEZ RN 1 [address] ATTEMPT AFTER 3 ATTEMPS PRIOR Karina HEAD, IV STARTED # 22, IV STARTED BY: Jonathon LOPEZ RN, IV ATTEMPTS OBTAINED ON 4TH ATTEMPT, PRE-PROCEDURE ORAL MEDICATIONS NONE IV SEDATION IN THE ROOM PROCEDURE IN ROOM 1330, PHYSICIAN IN ROOM 1358, START 1409, FINISH 1423, PHYSICIAN OUT OF ROOM 1423, OUT OF ROOM 1435, STEROID NO, O2 2 LITER, ECG NSR FRANK AT TIMES, PATIENT SHIELDED NO, SAFETY STRAP NO STRAP, PREP DR ADAM, IV INFUSED YES LR 200 MG, DRESSING DRY AND INTACT LOC: 1. ALERT, ORIENTED RESP: 1. REGULAR, NO DYSPNEA COLOR: 1. PINK SKIN: 1. WARM, DRY POSITION: 3. LATERAL VITALS: 1300 120/81 56 100% ON 2 LITER KGULLO RN 1315 122/65 57 100 ON 2 L 18 KGULLO RN 1330 132/54 54 100 ON 2 1345 126/54 57 100 ON 2 L 1355 132/54 56 100 ON 2 L 1400 123/83 54 100% 2 L 16 1405 123/54 56 100 2 L 16 RESP 1410 123/83 56 100% 2 L RESP 16 1415 122/77 54 100 @ 2 L RESP 18 1420 118/75 58 100 @ 2 L RESP 16 1425 120/77 58 100 ON RA RESP 18 1442 110/62 79 98% ON RA RESP 18 IV SEDATION 1 MG VERSED @1359 IV BY Karina HEAD 1401 1 MG VERSED @1401 BY Pool HEAD RN 25 MCG FENTANYL @ 1403 IV Pool HEAD RN 25 MCG FENTANYL @ 1405 IV Karina HEAD RN 25 MCG FENTANYL @1407 IV Karina HEAD 25 MCG FENTANYL @ 1409 IV Karnia HEAD RN DISCHARGE: POST PAIN 0/10, DRESSING SITE DRY AND INTACT, IV DISCONTINUED, SITE CLEAR, CATHETER INTACT, GAIT WHEELCHAIR, TEACHING COMPLETED, PATIENT ACKNOWLEDGES UNDERSTANDING YES, PATIENT DISCHARGED AT 1455- PATIENT DISCHARGED VIA WHEELCHAIR. THIS VACUUM CONDITIONER OPERATOR ACCOMPANIED PATIENT. PATIENT DISCHARGED TO CAR WITH HETAL. NLJ PRE PROCEDURE DIAGNOSIS OPENING PRESSURE 12 CM OF WATER PROCEDURE SPINAL TAP PRE PROCEDURE NOTE PATIENT INTERVIEWED, EXAMINATIONS AND TREATMENT QUESTIONNAIRES REVIEWED. PROCEDURE AND RISKS AND BENEFITS DISCUSSED WITH PATIENT DESCRIPTION OF PROCEDURE AFTER CONSENT WAS REVIEWED WITH THE PATIENT, WE TOOK THE PATIENT TO THE PROCEDURE ROOM. A TIMEOUT WAS PERFORMED WHERE LATERALITY AND THE SITE OF THE PROCEDURE WERE CHECKED AND CONFIRMED WITH EVERYONE IN THE ROOM. THE PATIENT WAS PLACED IN THE LEFT LATERAL POSITION. THE AREA WAS PREPPED WITH BETADINE IN STERILE FASHION. LOCAL INFILTRATE 1% LIDOCAINE AT THE L4-L5 INTERSPACE. A 22-GAUGE QUINCKE NEEDLE WAS ADVANCED UNTIL THE DURA WAS FELT AND CSF IS FREE-FLOWING. THERE WAS NO BLOOD RETURN ENCOUNTERED. THERE WERE NO PARAESTHESIA ENCOUNTERED. OPENING PRESSURE WAS MEASURED AT 12 CM OF WATER. 4 VIALS X 3.0 CC OF CSF WAS COLLECTED. CSF WAS DESCRIPTION WAS CLEAR. CSF SENT FOR STUDIES ORDERED BY REFERRING PHYSICIAN. VITAL SIGNS WERE STABLE. THERE WERE NO COMPLICATIONS. ESTIMATED BLOOD LOSS WAS LESS THAN 5 ML. IV SEDATION START TIME: 1359 IV SEDATION END TIME: 1423 TOTAL AECF-DE-VMOW TIME: 24 MINUTES POST PROCEDURE NOTE DISCHARGE WHEN PATIENT MEETS CRITERIA. PATIENT WILL FOLLOW UP WITH DR. GANDHI AND CALL OUR OFFICE NEEDED PROCEDURE CODES 99272 SPINAL FLUID TAP DIAGNOSTIC 27689 MOD SED SAME PHYS/QHP 5/>YRS 43666 MOD SED SAME PHYS/QHP EA DISPOSITION & COMMUNICATION FOLLOW UP F/UP WITH NEUROLOGIST (REASON: POST SPINAL TAP) ELECTRONICALLY SIGNED BY SVETA ADAM MD, ON 08/16/2019 AT 09:22 AM EDT DISCLAIMER : THIS IS A VISIT SUMMARY EXTRACTED FROM THE [employer] CHART. IT IS NOT A COPY OF THE [employer] PROGRESS NOTE. JOSELYN
== END ==
LOC: M PAIN 13:15
PROVIDERS: ATTEND Anesthesiology
DX: R29.90 Unspecified symptoms and signs involving the nervous system (principal)
CPT/HCPCS: 36415; 62270; 82784; 82945; 83916; 84157; 87070; 87102; 87205; 87252; 87483; 88108; 88313; 89050; 99152; 99153; J2250; J3010

== ENCOUNTER → 2020-04-02 | Outpatient (REF) | payer OTHER ==
[~2020-04-02] MED LIST changes: -LIDOCAINE 1% SDV 30ML VIAL As Ordered ONE; -MIDAZOLAM INJ 2MG/2ML VIAL (J2250 PER 1MG) As Ordered ONE; -fentaNYL 100 MCG/2 ML INJECTION (J3010) As Ordered ONE
[2020-04-02 16:13] LABS: CHLAMYDIA DNA AMPLIFICATION NEGATIVE (NEGATIVE); GC DNA AMPLIFICATION NEGATIVE (NEGATIVE)
== END ==
LOC: M SFHCWAGY 13:43
PROVIDERS: ATTEND Nurse Practitioner Family
DX: Z12.4 Encounter for screening for malignant neoplasm of cervix (principal)

== ENCOUNTER → 2020-05-06 | Outpatient (REF) | payer OTHER | LOC: M SFHCWAGY 13:03 | PROVIDERS: ATTEND Nurse Practitioner Women's Health | DX: R87.613 High grade squamous intraepithelial lesion on cytologic smear of cervix (HGSIL) (principal) ==

== ENCOUNTER 2020-11-25 15:57 | Outpatient (CLI) | payer OTHER ==
[~2020-11-25] VITALS: Ht 175.3 cm; Wt 54.5 kg
[2020-11-25 16:00] VITALS: BP 124/84
[2020-11-25] MEDS ORDERED: GLAT40IN3 SC (16:31)
[2020-11-25] MEDS ORDERED: methylPREDNISolone 1,000 MG, VIAL MATE ADAPTER 1 EACH in NS 250 ML IV ONE (17:00)
[2020-11-25 18:00] VITALS: BP 118/72
[2020-11-26] MEDS ORDERED: methylPREDNISolone 1,000 MG, VIAL MATE ADAPTER 1 EACH in NS 250 ML IV ONE (16:00)
== END 2020-11-25 16:00 | disposition home or self-care (01) ==
LOC: M INFU 15:57
PROVIDERS: ATTEND Psychiatry & Neurology Neurology
DX: G35 Multiple sclerosis (principal)
CPT/HCPCS: 96365; J2930

== ENCOUNTER 2020-11-26 15:32 | Outpatient (CLI) | payer OTHER ==
[~2020-11-26] VITALS: Ht 175.3 cm; Wt 54.5 kg
[~2020-11-26 15:32] MED LIST changes: +GLAT40IN3 SC
[2020-11-26] MEDS ORDERED: methylPREDNISolone 1,000 MG, VIAL MATE ADAPTER 1 EACH in NS 250 ML IV ONE (16:00)
[2020-11-26 16:21] VITALS: BP 118/65
[2020-11-26 17:13] VITALS: BP 120/65
== END 2020-11-26 17:15 | disposition home or self-care (01) ==
LOC: M INFU 15:32
PROVIDERS: ATTEND Psychiatry & Neurology Neurology
DX: G35 Multiple sclerosis (principal)
CPT/HCPCS: 96365; J2930

== ENCOUNTER 2020-11-27 16:09 | Outpatient (CLI) | payer OTHER ==
[~2020-11-27] VITALS: Ht 175.3 cm; Wt 54.5 kg
[~2020-11-27 16:09] MED LIST changes: +methylPREDNISolone 1,000 MG, VIAL MATE ADAPTER 1 EACH in NS 250 ML IV ONE
[2020-11-27 16:20] VITALS: BP 117/70
[2020-11-27 17:30] VITALS: BP 135/90
== END 2020-11-27 17:30 | disposition home or self-care (01) ==
LOC: M INFU 16:09
PROVIDERS: ATTEND Psychiatry & Neurology Neurology
DX: G35 Multiple sclerosis (principal)
CPT/HCPCS: 96365; J2930

== ENCOUNTER 2020-11-28 15:18 | Outpatient (CLI) | payer OTHER ==
[~2020-11-28] VITALS: Ht 175.3 cm; Wt 54.5 kg
[~2020-11-28 15:18] MED LIST changes: -methylPREDNISolone 1,000 MG, VIAL MATE ADAPTER 1 EACH in NS 250 ML IV ONE
[2020-11-28 15:43] VITALS: BP 129/70
[2020-11-28] MEDS ORDERED: methylPREDNISolone 1,000 MG, VIAL MATE ADAPTER 1 EACH in NS 250 ML IV ONE (16:00)
[2020-11-28 16:50] VITALS: BP 140/86
== END 2020-11-28 16:50 | disposition home or self-care (01) ==
LOC: M INFU 15:18
PROVIDERS: ATTEND Psychiatry & Neurology Neurology
DX: G35 Multiple sclerosis (principal)
CPT/HCPCS: 96365; J2930

== ENCOUNTER 2020-11-29 15:28 | Outpatient (CLI) | payer OTHER ==
[~2020-11-29] VITALS: Ht 175.3 cm; Wt 54.5 kg
[2020-11-29 15:43] VITALS: BP 131/70
[2020-11-29] MEDS ORDERED: methylPREDNISolone 1,000 MG, VIAL MATE ADAPTER 1 EACH in NS 250 ML IV ONE (16:00)
[2020-11-29 16:45] VITALS: BP 129/81
== END 2020-11-29 16:45 | disposition home or self-care (01) ==
LOC: M INFU 15:28
PROVIDERS: ATTEND Psychiatry & Neurology Neurology
DX: G35 Multiple sclerosis (principal)
CPT/HCPCS: 96365; J2930

== ENCOUNTER 2021-07-23 14:21 | Outpatient (CLI) | payer OTHER ==
[~2021-07-23] VITALS: Ht 175.3 cm; Wt 52.3 kg
[2021-07-23 15:50] VITALS: BP 123/69
[2021-07-23] MEDS ORDERED: methylPREDNISolone 1,000 MG, VIAL MATE ADAPTER 1 EACH in NS 250 ML IV ONE (16:00)
== END 2021-07-23 15:50 | disposition home or self-care (01) ==
LOC: M INFU 14:21
PROVIDERS: ATTEND Psychiatry & Neurology Neurology
DX: G35 Multiple sclerosis (principal)
CPT/HCPCS: 96365; J2930

== ENCOUNTER 2021-07-24 15:21 | Outpatient (CLI) | payer OTHER ==
[~2021-07-24] VITALS: Ht 170.2 cm; Wt 52.3 kg
[2021-07-24 15:45] VITALS: BP 110/57
[2021-07-24] MEDS ORDERED: methylPREDNISolone 1,000 MG, VIAL MATE ADAPTER 1 EACH in NS 250 ML IV ONE (16:00)
[2021-07-24 17:00] VITALS: BP 121/69
== END 2021-07-24 17:10 | disposition home or self-care (01) ==
LOC: M INFU 15:21
PROVIDERS: ATTEND Psychiatry & Neurology Neurology
DX: G35 Multiple sclerosis (principal)
CPT/HCPCS: 96365; J2930

== ENCOUNTER 2021-07-25 14:38 | Outpatient (CLI) | payer OTHER ==
[~2021-07-25] VITALS: Ht 175.3 cm; Wt 54.5 kg
[2021-07-25 14:45] VITALS: BP 134/69
[2021-07-25 15:56] VITALS: BP 139/80
[2021-07-25] MEDS ORDERED: methylPREDNISolone 1,000 MG, VIAL MATE ADAPTER 1 EACH in NS 250 ML IV ONE (16:00)
== END 2021-07-25 16:00 | disposition home or self-care (01) ==
LOC: M INFU 14:38
PROVIDERS: ATTEND Psychiatry & Neurology Neurology
DX: G35 Multiple sclerosis (principal)
CPT/HCPCS: 96365; J2930

== ENCOUNTER → 2022-02-26 | Outpatient (REF) | payer OTHER | LOC: M PLALAB 09:06 | PROVIDERS: ATTEND Advanced Practice Midwife | DX: Z12.4 Encounter for screening for malignant neoplasm of cervix (principal) ==

== ENCOUNTER → 2024-08-22 | Outpatient (REF) | payer OTHER ==
[2024-08-24 14:04] LABS: HPV APTIMA Detected (Not Detected)
== END ==
LOC: M PLALAB 13:16
PROVIDERS: ATTEND Advanced Practice Midwife
DX: Z12.4 Encounter for screening for malignant neoplasm of cervix (principal); R87.612 Low grade squamous intraepithelial lesion on cytologic smear of cervix (LGSIL)

== ENCOUNTER → 2024-10-20 | Outpatient (REF) | payer OTHER | LOC: M PLALAB 15:11 | PROVIDERS: ATTEND Advanced Practice Midwife | DX: R87.612 Low grade squamous intraepithelial lesion on cytologic smear of cervix (LGSIL) (principal); R87.613 High grade squamous intraepithelial lesion on cytologic smear of cervix (HGSIL); R87.810 Cervical high risk human papillomavirus (HPV) DNA test positive ==

== ENCOUNTER → 2024-12-05 | Outpatient (REF) | payer OTHER | LOC: M PLALAB 15:19 | PROVIDERS: ATTEND Obstetrics & Gynecology | DX: R87.810 Cervical high risk human papillomavirus (HPV) DNA test positive (principal); N72 Inflammatory disease of cervix uteri ==

== ENCOUNTER 2025-02-05 14:53 | Emergency (ER) | payer OTHER ==
[~2025-02-05] VITALS: Ht 175.3 cm; Wt 54.8 kg
[2025-02-05] MEDS ORDERED: HOME MED LIST COMPLETE! XX SCH (18:05)
[2025-02-05 18:20] LABS: APPEARANCE, URINE CLEAR (CLEAR); BACTERIA, URINE AUTO NEGATIVE (NEGATIVE); BILIRUBIN, URINE AUTO NEGATIVE (NEGATIVE); BLOOD, URINE BLOOD 2+ (NEGATIVE); GLUCOSE, URINE (UA) AUTO NEGATIVE (NEGATIVE); KETONE, URINE AUTO NEGATIVE (NEGATIVE); LEUKOCYTE ESTERASE, URINE AUTO NEGATIVE (NEGATIVE); NITRITE, URINE AUTO NEGATIVE (NEGATIVE); PROTEIN, URINE AUTO NEGATIVE (NEGATIVE); RBC, URINE AUTO 0 /HPF (0-3); SPECIFIC GRAVITY URINE AUTO 1.019 (1.002-1.035); SQUAMOUS EPITHELIAL CELL UR AU 4 /HPF (0-6); UROBILINOGEN, URINE AUTO 4.0 mg/dL (0.0-2.0); WBC, URINE AUTO 3 /HPF (0-3)
[2025-02-05 18:23] LABS: BASO # 0.0 10^3/uL (0.0-0.2); BASO % 0.7 % (0.0-1.0); EOS # 0.1 10^3/uL (0.0-0.5); EOS % 1.9 % (0.0-3.0); LYMPH # 1.6 10^3/uL (1.5-5.0); LYMPH % 27.9 % (24.0-44.0); MONO # 0.3 10^3/uL (0.0-0.8); MONO % 5.8 % (2.0-8.0); NEUTROPHILS # 3.7 10^3/uL (1.5-8.5); NEUTROPHILS % 63.5 % (36.0-66.0); PLATELET COUNT, AUTOMATED 149 10^3/uL (150-450)
[2025-02-05 18:50] LABS: C REACTIVE PROTEIN QUANTITATIV < 0.50 MG/DL (<1.0); CALCIUM LEVEL 8.7 MG/DL (8.5-10.1); CARBON DIOXIDE LEVEL 30 MMOL/L (20-31); CHLORIDE LEVEL 102 MMOL/L (98-107); CREATININE FOR GFR 0.70 MG/DL (0.55-1.30); GLOMERULAR FILTRATION RATE > 90.0 (>60); HCG, SERUM QUANTITATIVE < 2.6 MIU/ML (<4.2); POTASSIUM SERUM 4.1 MMOL/L (3.5-5.1); SODIUM LEVEL 136 MMOL/L (136-145)
[2025-02-05 18:52] LABS: FREE T4 1.09 NG/DL (0.89-1.76)
[2025-02-05 18:53] LABS: VITAMIN B12 LEVEL 356 PG/ML (211-911)
[2025-02-05] MEDS ORDERED: PRED20TA PO (22:14)
[2025-02-05] MEDS: predniSONE 20 MG TAB PO ONE (22:14)
[2025-02-05 22:20] VITALS: BP 134/77; TEMP 98.2; O2SAT 100
== END 2025-02-05 22:24 | disposition home or self-care (01) ==
LOC: M ED 14:53
DX: G35.D Multiple sclerosis, unspecified (principal); R20.2 Paresthesia of skin; Z86.718 Personal history of other venous thrombosis and embolism; Z88.8 Allergy status to other drugs, medicaments and biological substances; Z79.52 Long term (current) use of systemic steroids
CPT/HCPCS: 36415; 70551; 80048; 81001; 82607; 84439; 84443; 84702; 85025; 85652; 86140; 87486; 87581; 87633; 87798; 99284; J7512